=== PATIENT | female | born 1985 | race Caucasian/White ===

== ENCOUNTER 2016-07-16 11:28 | Outpatient (CLI) | payer OTHER ==
--- NOTE | 2016-07-16 12:00 | L&D Flow Sheet ---
LD Flowsheet Datetime Report Generated by CPN: 07/16/2016 12:00 Datetime: 07/16/2016 11:38 Vital Signs Stage of : Labor (Amalia Milton RN) NBP Sys/Skylar/Mean (mmHg): 117 (QS system process) : 71 (QS system process) : 89 (QS system process) Pulse: 100 (QS system process) Respirations: 16 (Amalia Milton RN) Temperature (F): 97.5 (Amalia Sarpy, RN) Temperature (C): 36.4 (QS system process) Temperature Route: Oral (Amalia Milton, RN) Communication LaborFlag: Labor (QS system process)
--- NOTE | 2016-07-16 12:32 | Non Stress Test Report ---
Non Stress Test Datetime Report Generated by CPN: 07/16/2016 12:31 DEMOGRAPHIC EGA NST: 38.2 INDICATION Indication for Study: Ordered by Provider; Other MONITORING Monitor Explained: Monitor Explained; Test Explained; Patient Verbalized Understanding Time on Monitor: 07/16/2016 11:37 NST INTERVENTIONS NST Interventions: PO Hydration; Reposition Patient Physician Notified NST: Antonina Marsh, CNM BABY A: [id number] BABY A Movement : Present Contraction Frequency : none FHR Baseline : 135 Accelerations : 15X15 Decelerations : None Variability : Moderate 6-25bpm NST Review: Meets Criteria for Reactive NST NST Review and Verified By : Cole Mccullough RNC NST Results: Reactive NST REPORT Report Trigger: Send Report
== END 2016-07-16 12:31 | disposition home or self-care (01) ==
LOC: LC 11:28
PROVIDERS: ATTEND Obstetrics & Gynecology
PROC: 4A1HXCZ Monitoring of Products of Conception, Cardiac Rate, External Approach (ICD-10-PCS; principal; 2016-07-16)
DX: Z34.83 Encounter for supervision of other normal pregnancy, third trimester (principal); Z36 Encounter for antenatal screening of mother; Z3A.38 38 weeks gestation of pregnancy
CPT/HCPCS: 59025

== ENCOUNTER 2016-07-27 10:52 | Inpatient (IN) | payer OTHER ==
[2016-07-27] MEDS ORDERED: OXYTOCIN/NORMAL SALINE 1,000 ML IV PRN ×2 (11:12→18:54)
[2016-07-27] MEDS ORDERED: RINGERS SOLUTION,LACTATED 300 ML IV ONE (11:12)
[2016-07-27 11:39] LABS: APPEARANCE,URINE SLIGHTLY-CLOUDY; BILIRUBIN,URINE NEGATIVE (NEGATIVE); GLUCOSE, URINE NEGATIVE (NEGATIVE); KETONES,URINE NEGATIVE (NEGATIVE); LEUKOCYTE ESTERASE,URINE MODERATE (NEGATIVE); NITRITE,URINE NEGATIVE (NEGATIVE); PROTEIN,URINE NEGATIVE (NEGATIVE); UROBILINOGEN,URINE NEGATIVE mg/dL (<2.0)
[2016-07-27] MEDS ORDERED: OXYTOCIN/NORMAL SALINE 20 UNIT/1,000 ML RTUINJ ONE (11:49)
[2016-07-27 11:56] LABS: URINE BARBITURATES SCREEN NEGATIVE; URINE METHADONE SCREEN NEGATIVE; URINE OPIATES LOW NEGATIVE; URINE PHENCYCLIDINE SCREEN NEGATIVE
[2016-07-27 11:57] LABS: ABSOLUTE EOSINOPHILS # (AUTO) 0.1 10^3/uL (0.0-0.6); ABSOLUTE LYMPHOCYTES (AUTO) 1.3 10^3/uL (0.5-4.7); ABSOLUTE MONOCYTES (AUTO) 0.7 10^3/uL (0.1-1.4); ABSOLUTE NEUT (AUTO) 7.3 10^3/uL (1.7-8.2); BASOPHILS % (AUTO) 0.1 % (0-2); EOSINOPHILS % (AUTO) 0.8 % (0-6); HEMATOCRIT 33.7 % (36.0-47.0); HEMOGLOBIN 11.6 g/dL (12.0-15.5); HGB HCT DIFFERENCE 1.1; LYMPHOCYTES % (AUTO) 14.2 % (13-45); MEAN CORPUSCULAR HEMOGLOBIN 28.5 pg (27.0-33.4); MEAN CORPUSCULAR HGB CONC 34.4 g/dL (32.0-36.0); MEAN CORPUSCULAR VOLUME 83 fl (80-97); MONOCYTES % (AUTO) 7.1 % (3-13); RED BLOOD COUNT 4.06 10^6/uL (3.72-5.28); RED CELL DISTRIBUTION WIDTH 14.4 % (11.5-14.0); SEGMENTED NEUTROPHILS % (AUTO) 77.8 % (42-78); WHITE BLOOD COUNT 9.4 10^3/uL (4.0-10.5)
[2016-07-27] MEDS: RINGERS SOLUTION,LACTATED 1,000 ML IV PRN ×2 (11:57→15:57)
--- NOTE | 2016-07-27 12:01 | L&D Flow Sheet ---
LD Flowsheet Datetime Report Generated by CPN: 07/27/2016 12:00 Datetime: 07/27/2016 11:54 Vital Signs NBP Sys/Skylar/Mean (mmHg): 123 (QS system process) : 80 (QS system process) : 96 (QS system process) Pulse: 96 (QS system process) Communication LaborFlag: Labor (QS system process) Datetime: 07/27/2016 11:23 Vital Signs NBP Sys/Skylar/Mean (mmHg): 126 (QS system process) : 69 (QS system process) : 91 (QS system process) Pulse: 99 (QS system process) Respirations: 16 (Lashawn Keller RN) Temperature (F): 98.0 (Lashawn Keller RN) Temperature (C): 36.7 (QS system process) Temperature Route: Oral (Lashawn Keller RN) Communication LaborFlag: Labor (QS system process) Datetime: 07/27/2016 11:08 Patient Care Patient Position/Activity: Left Lateral; Semi-Fowlers (Lashawn Marhefka, RN) Teaching Instructional Method: Verbal; Patient Instructed; Verbalized Understanding (Lashawn Keller RN) Plan of Care: Plan of Care Discussed (Lashawn Keller RN) Unit Routine: [place] to Room; [place]; Bed; Unit Personnel; Monitoring; Bathroom Privileges (Lashawn Keller RN) Labor/Induction: Labor Stages (Lashawn Keller RN) Datetime: 07/27/2016 11:04 Vaginal Exam Dilatation (cm): 3.5 (Lashawn Keller RN) Effacement (%): 80 (Lashawn Keller RN) Station: -1 (Lashawn Keller RN) Exam by: Jonathan Gillespie CNM (Lashawn Keller RN) Vaginal Exam Comments: bulging bag, baby belottable (Lashawn Keller RN)
--- NOTE | 2016-07-27 13:38 | L&D Progress Notes ---
PROGRESS NOTES Datetime Report Generated by CPN: 07/27/2016 13:38 PROGRESS NOTE Impression: Normal Progression of Labor; Reassuring Heart Rate Procedures: Artificial ROM; Scalp Electrode; Sterile Vag Exam Plan: Continue Present Management Vital Signs : Reviewed; Within Normal Limits Comment: Pt coping with ctx feels more pressure AROM with FSE Copious clear fluid Pt may have epidural, prn Pitocin 10 mu per protocol. VAGINAL EXAM Dilatation: 5 Dilatation: 4 Effacement: 80 Effacement: 80 Station: -1 Station: -2 Contractions: 2-5 Contractions: irregular MEMBRANES Membranes: Ruptured Membranes: Intact Amniotic Fluid Color: Clear Amniotic Fluid Color: Clear FETUS A FHR - Baseline: 145 Monitoring: External US Variability: Moderate 6-25bpm Decelerations: None FHR Category: Category I : 39.6 Estimated Weight (gm): 3500 Presentation: Vertex SIGNATURE SIGNATURE: [id number] SIGNATURE: [id number] SIGNATURE: [id number] Assignment: Telma Hawkins MD Signature: with User ID: [email or web address] : with User ID: [email or web address]
--- NOTE | 2016-07-27 14:01 | L&D Flow Sheet ---
LD Flowsheet Datetime Report Generated by CPN: 07/27/2016 14:00 Datetime: 07/27/2016 13:54 NBP Sys/Skylar/Mean (mmHg): 139 (QS system process) : 69 (QS system process) : 95 (QS system process) Pulse: 97 (QS system process) LaborFlag: Labor (QS system process) Datetime: 07/27/2016 13:45 Monitor Mode: External (Lashawn Arianna, RN) Frequency (min): 2-4 (Lashawn Marhefka, RN) Quality: Mild (Lashawn Marhefka, RN) Duration (sec): 40-70 (Lashawn Marhefka, RN) Resting Tone (Palpate): Relaxed (Lashawn Marhefka, RN) Monitor Mode: External US (Lashawn Marhefka, RN) FHR Baseline Rate : 145 (Lashawn Marhefka, RN) FHR Baseline Changes: No Baseline Change (Lashawn Marhefka, RN) Variability: Moderate 6-25 bpm (Lashawn Marhefka, RN) Accelerations: None (Lashawn Marhefka, RN) Decelerations: Early (Lashawn Marhefka, RN) Datetime: 07/27/2016 13:30 Monitor Mode: External (Lashawn Marhefka, RN) Frequency (min): 2-4 (Lashawn Marhefka, RN) Quality: Mild (Lashawn Marhefka, RN) Duration (sec): 50-60 (Lashawn Marhefka, RN) Resting Tone (Palpate): Relaxed (Lashawn Marhefka, RN) Monitor Mode: External US (Lashawn Marhefka, RN) FHR Baseline Rate : 140 (Lashawn Marhefka, RN) FHR Baseline Changes: No Baseline Change (Lashawn Marhefka, RN) Variability: Moderate 6-25 bpm (Lashawn Marhefka, RN) Accelerations: None (Lashawn Marhefka, RN) Decelerations: None (Lashawn Marhefka, RN) Pitocin (milliunit): Pitocin Increased to (milliunits) @ (Annotations: 10) (Lashawn Marhefka, RN) Datetime: 07/27/2016 13:26 Dilatation (cm): 4.0 (Lashawn Keller RN) Effacement (%): 80 (Lashawn Keller RN) Station: -2 (Lashawn Keller RN) Exam by: Jonathan Gillespie CNM (Lashawn Keller RN) Membrane Status: Ruptured (Lashawn Keller RN) Membranes Rupture Method: Artificial (Lashawn Keller, RN) Amniotic Fluid Color: Clear (Lashawn Keller, RN) Amniotic Fluid Amount: Copious (Lashawn Keller, RN) Amniotic Fluid Odor: Normal (Lashawn Keller, RN) Vaginal Bleeding: None (Lashawn Keller RN) Cervix, Consistency: Soft (Lashawn Keller RN) Cervix, Position: Midposition (Lashawn Keller RN) Datetime: 07/27/2016 13:23 NBP Sys/Skylar/Mean (mmHg): 141 (QS system process) : 87 (QS system process) : 107 (QS system process) Pulse: 109 (QS system process) LaborFlag: Labor (QS system process) Datetime: 07/27/2016 13:15 Monitor Mode: External (Lashawn Marhefka, RN) Frequency (min): 2-6 (Lashawn Marhefka, RN) Quality: Mild (Lashawn Marhefka, RN) Duration (sec): 40-100 (Lashawn Marhefka, RN) Resting Tone (Palpate): Relaxed (Lashawn Marhefka, RN) Monitor Mode: External US (Lashawn Marhefka, RN) FHR Baseline Rate : 140 (Lashawn Marhefka, RN) FHR Baseline Changes: No Baseline Change (Lashawn Marhefka, RN) Variability: Minimal - Undetectable to <=5 bpm (Lashawn Marhefka, RN) Accelerations: 15X15 (Lashawn Marhefka, RN) Decelerations: None (Lashawn Marhefka, RN) Pitocin (milliunit): Pitocin Remains (milliunits) @ (Annotations: 8) (Lashawn Marhefka, RN) Datetime: 07/27/2016 13:03 Patient Position/Activity: Birthing Ball (Lashawn Keller, RN) Datetime: 07/27/2016 13:00 Monitor Mode: External; Palpation (Lashawn Keller, RN) Monitor Interventions for UA: [place] Adjusted (Lashawn Keller, RN) Frequency (min): 2-4 (Lashawn Keller, RN) Quality: Mild (Lashawn Keller, RN) Duration (sec): 50-100 (Lashawn Rameyfka, RN) Resting Tone (Palpate): Relaxed (Lashawn Keller, RN) Monitor Mode: External US (Lashawn Keller, RN) FHR Baseline Rate : 135 (Lashawn Rameyfka, RN) FHR Baseline Changes: No Baseline Change (Lashawn Rameyfka, RN) Variability: Moderate 6-25 bpm (Lashawn Rameyfka, RN) Accelerations: 15X15 (Lashawn Rameyfka, RN) Decelerations: None (Lashawn Keller, RN) Pitocin (milliunit): Pitocin Increased to (milliunits) @ (Annotations: 8) (Lashawn Marpiafka, RN) Datetime: 07/27/2016 12:58 NBP Sys/Skylar/Mean (mmHg): 144 (QS system process) : 65 (QS system process) : 94 (QS system process) Pulse: 116 (QS system process) Respirations: 16 (Lashawn Karolinefka, RN) LaborFlag: Labor (QS system process) Datetime: 07/27/2016 12:56 Patient Care Comments: Pt standing @ bedside. (Lashawn Karolinefka, RN) Datetime: 07/27/2016 12:53 I/O Interventions: Up to BR (Lashawn Marhefka, RN) Datetime: 07/27/2016 12:45 Monitor Mode: External (Lashawn Marhefka, RN) Frequency (min): 6-7 (Lashawn Marhefka, RN) Quality: Mild (Lashawn Marhefka, RN) Duration (sec): 50-70 (Lashawn Marhefka, RN) Resting Tone (Palpate): Relaxed (Lashawn Marhefka, RN) Monitor Mode: External US (Lashawn Marhefka, RN) FHR Baseline Rate : 135 (Lashawn Marhefka, RN) FHR Baseline Changes: No Baseline Change (Lashawn Marhefka, RN) Variability: Moderate 6-25 bpm (Lashawn Marhefka, RN) Decelerations: None (Lashawn Marhefka, RN) Pitocin (milliunit): Pitocin Increased to (milliunits) @ (Annotations: 6) (Lashawn Marhefka, RN) Datetime: 07/27/2016 12:36 Comments: RN @ bedside ultrasound adjusted. (Lashawn Marhefka, RN) Patient Position/Activity: Birthing Ball (Lashawn Marhefka, RN) Datetime: 07/27/2016 12:30 Monitor Mode: External (Lashawn Marhefka, RN) Frequency (min): 2-3 (Lashawn Marhefka, RN) Quality: Mild (Lashawn Marhefka, RN) Duration (sec): 40-80 (Lashawn Marhefka, RN) Resting Tone (Palpate): Relaxed (Lashawn Marhefka, RN) Monitor Mode: External US (Lashawn Marhefka, RN) FHR Baseline Rate : 140 (Lashawn Marhefka, RN) FHR Baseline Changes: No Baseline Change (Lashawn Marhefka, RN) Variability: Minimal - Undetectable to <=5 bpm (Lashawn Marhefka, RN) Accelerations: None (Lashawn Marhefka, RN) Decelerations: None (Lashawn Marhefka, RN) Pitocin (milliunit): Pitocin Increased to (milliunits) @ (Annotations: 4) (Lashawn Marhefka, RN) Datetime: 07/27/2016 12:15 Monitor Mode: External (Lashawn Marhefka, RN) Frequency (min): 7 (Lashawn Marhefka, RN) Quality: Mild (Lashawn Marhefka, RN) Duration (sec): 50-60 (Lashawn Marhefka, RN) Resting Tone (Palpate): Relaxed (Lashawn Marhefka, RN) Monitor Mode: External US (Lashawn Marhefka, RN) FHR Baseline Rate : 140 (Lashawn Marhefka, RN) FHR Baseline Changes: No Baseline Change (Lashawn Marhefka, RN) Variability: Moderate 6-25 bpm (Lashawn Marhefka, RN) Accelerations: 15X15 (Lashawn Marhefka, RN) Decelerations: None (Lashawn Marhefka, RN) Datetime: 07/27/2016 12:04 Pitocin (milliunit): Pitocin Started (milliunits) @ 2 (Lashawn Marhefka, RN) Datetime: 07/27/2016 12:00 Monitor Mode: External; Palpation (Lashawn Marhefka, RN) Frequency (min): Irregular (Lashawn Marhefka, RN) Quality: Mild (Lashawn Marhefka, RN) Duration (sec): 50-90 (Lashawn Marhefka, RN) Resting Tone (Palpate): Relaxed (Lashawn Keller RN) Monitor Mode: External US (Lashawn Keller RN) FHR Baseline Rate : 135 (Lashawn Keller RN) FHR Baseline Changes: No Baseline Change (aLshawn Keller RN) Variability: Moderate 6-25 bpm (Lashawn Keller RN) Accelerations: 15X15 (Lashawn Keller RN) Decelerations: None (Lashawn Keller RN)
--- NOTE | 2016-07-27 15:57 | L&D Progress Notes ---
PROGRESS NOTES Datetime Report Generated by CPN: 07/27/2016 15:56 PROGRESS NOTE Impression: Normal Progression of Labor Procedures: Sterile Vag Exam Plan: Continue Present Management Vital Signs : Reviewed; Within Normal Limits Comment: pt requesting pain medication Pt may have epidural VAGINAL EXAM Dilatation: 5 Effacement: 80 Station: 0 Contractions: 2-4 MEMBRANES Membranes: Ruptured FETUS A FHR - Baseline: 135 Monitoring: Internal Scalp Electrode Variability: Moderate 6-25bpm Accelerations: 15X15 Decelerations: None FHR Category: Category I FETUS C SIGNATURE: [id number] Assignment: Telma Hawkins MD Signature: with User ID: [email or web address] : with User ID: [email or web address]
--- NOTE | 2016-07-27 16:01 | L&D Flow Sheet ---
LD Flowsheet Datetime Report Generated by CPN: 07/27/2016 16:00 Datetime: 07/27/2016 15:59 Monitor Interventions for UA: [place] Adjusted (Lashawn Marhefka, RN) Datetime: 07/27/2016 15:58 IV/Blood Work: IV Bolus Started; New IV Bag Hung (Lashawn Marhefka, RN) Datetime: 07/27/2016 15:57 Pain Scale: 4 (Lashawn Keller RN) Pain Presence: Intermittent (Lashawn Keller RN) Pain Type: Contraction (Lashawn Keller RN) Pain Location: Abdomen (Lashawn Keller RN) Pain Goal: 0 (Lashawn Keller RN) Pain Relief Measures: Comfort Measures (Lashawn Keller RN) Pain Coping: Breathing Through Contractions; Requesting Pain Medication or Epidural (Lashawn Keller RN) Comfort Measures: Breathing/Relaxation (Lashawn Keller RN) LaborFlag: Labor (QS system process) Datetime: 07/27/2016 15:52 Dilatation (cm): 5.0 (Lashawn Keller RN) Effacement (%): 80 (Lashawn Keller RN) Station: 0 (Lashawn Keller RN) Exam by: Jonathan Gillespie CNM (Lashawn Keller RN) Datetime: 07/27/2016 15:45 Monitor Mode: External (Lashawn Marhefka, RN) Frequency (min): 1-3 (Lashawn Marhefka, RN) Quality: Mild (Lashawn Marhefka, RN) Duration (sec): 40-60 (Lashawn Marhefka, RN) Resting Tone (Palpate): Relaxed (Lashawn Marhefka, RN) Datetime: 07/27/2016 15:30 Monitor Mode: External (Lashawn Marhefka, RN) Frequency (min): 1-3 (Lashawn Marhefka, RN) Quality: Mild (Lashawn Marhefka, RN) Duration (sec): 40-90 (Lashawn Marhefka, RN) Resting Tone (Palpate): Relaxed (Lashawn Marhefka, RN) Datetime: 07/27/2016 15:24 NBP Sys/Skylar/Mean (mmHg): 126 (QS system process) : 88 (QS system process) : 104 (QS system process) Pulse: 101 (QS system process) LaborFlag: Labor (QS system process) Datetime: 07/27/2016 15:15 Monitor Mode: External (Lashawn Marhefka, RN) Frequency (min): 1-3 (Lashawn Marhefka, RN) Quality: Mild (Lashawn Marhefka, RN) Duration (sec): 50-90 (Lashawn Marhefka, RN) Resting Tone (Palpate): Relaxed (Lashawn Marhefka, RN) Datetime: 07/27/2016 15:00 Monitor Mode: External (Lashawn Marhefka, RN) Frequency (min): 1-3 (Lashawn Marhefka, RN) Quality: Mild (Lashawn Marhefka, RN) Duration (sec): 50-70 (Lashawn Marhefka, RN) Resting Tone (Palpate): Relaxed (Lashawn Marhefka, RN) Monitor Mode: Internal Scalp Electrode (Lashawn Marhefka, RN) FHR Baseline Rate : 140 (Lashawn Marhefka, RN) FHR Baseline Changes: No Baseline Change (Lashawn Marhefka, RN) Variability: Moderate 6-25 bpm (Lashawn Marhefka, RN) Accelerations: 15X15 (Lashawn Marhefka, RN) Decelerations: Early (Lashawn Marhefka, RN) Pitocin (milliunit): Pitocin Increased to (milliunits) @ (Annotations: 16) (Lashawn Marhefka, RN) Datetime: 07/27/2016 14:53 NBP Sys/Skylar/Mean (mmHg): 125 (QS system process) : 69 (QS system process) : 93 (QS system process) Pulse: 96 (QS system process) Respirations: 16 (Lashawn Marhefka, RN) Temperature (F): 97.7 (Lashawn Marhefka, RN) Temperature (C): 36.5 (QS system process) Temperature Route: Oral (Lashawn Marhefka, RN) LaborFlag: Labor (QS system process) Datetime: 07/27/2016 14:47 Pain Scale: 3 (Lashawn Keller RN) Pain Presence: Intermittent (Lashawn Keller RN) Pain Type: Contraction (Lashawn Keller RN) Pain Location: Abdomen (Lashawn Keller RN) Pain Goal: 0 (Lashawn Keller RN) Pain Relief Measures: Comfort Measures (Lashawn Keller RN) Pain Coping: Breathing Through Contractions (Lashawn Keller RN) Comfort Measures: Breathing/Relaxation; Rocking Chair (Lashawn Keller RN) LaborFlag: Labor (QS system process) Datetime: 07/27/2016 14:45 Monitor Mode: External; Palpation (Lashawn Keller RN) Quality: Mild (Lashawn Keller RN) Resting Tone (Palpate): Relaxed (Lashawn Keller RN) Contraction Comments: UTD toco adjusted (Lashawn Keller, RN) Monitor Mode: Internal Scalp Electrode (Lashawn Keller, RN) FHR Baseline Rate : 140 (Lashawn Keller RN) FHR Baseline Changes: No Baseline Change (Lashawn Keller RN) Variability: Moderate 6-25 bpm (Lashawn Keller, RN) Accelerations: 15X15 (Lashawn Keller, RN) Decelerations: None (Lashawn Keller RN) Pitocin (milliunit): Pitocin Increased to (milliunits) @ (Annotations: 14) (Lashawn Marhefka, RN) Datetime: 07/27/2016 14:30 Monitor Mode: External (Lashawn Marhefka, RN) Frequency (min): 1-3 (Lashawn Marhefka, RN) Quality: Mild (Lashawn Marhefka, RN) Duration (sec): 40-60 (Lashawn Marhefka, RN) Resting Tone (Palpate): Relaxed (Lashawn Marhefka, RN) Monitor Mode: Internal Scalp Electrode (Lashawn Marhefka, RN) FHR Baseline Rate : 135 (Lashawn Marhefka, RN) FHR Baseline Changes: No Baseline Change (Lashawn Marhefka, RN) Variability: Moderate 6-25 bpm (Lashawn Marhefka, RN) Accelerations: 15X15 (Lashawn Marhefka, RN) Decelerations: None (Lashawn Marhefka, RN) Pitocin (milliunit): Pitocin Remains (milliunits) @ (Annotations: 12) (Lashawn Marhefka, RN) Datetime: 07/27/2016 14:23 NBP Sys/Skylar/Mean (mmHg): 122 (QS system process) : 74 (QS system process) : 93 (QS system process) Pulse: 96 (QS system process) LaborFlag: Labor (QS system process) Datetime: 07/27/2016 14:15 Monitor Mode: External; Palpation (Lashawn Keller, RN) Frequency (min): 2-4 (Lashawn Arianna, RN) Quality: Mild (Lashawn Marhefka, RN) Duration (sec): 60-70 (Lashawn Marhefka, RN) Resting Tone (Palpate): Relaxed (Lashawn Marhefka, RN) Monitor Mode: Internal Scalp Electrode (Lashawn Karolinefka, RN) FHR Baseline Rate : 140 (Lashawn Marhefka, RN) FHR Baseline Changes: No Baseline Change (Lashawn Marhefka, RN) Variability: Moderate 6-25 bpm (Lashawn Marhefka, RN) Accelerations: 15X15 (Lashawn Marhefka, RN) Decelerations: None (Lashawn Marhefka, RN) Pitocin (milliunit): Pitocin Increased to (milliunits) @ (Annotations: 12) (Lashawn Marhefka, RN) Datetime: 07/27/2016 14:09 Monitor Interventions for UA: [place] Adjusted (Lashwan Umanaka, RN) Contraction Comments: RN @ bedside adjusting toco (Lashawn Karolinefka, RN) Datetime: 07/27/2016 14:00 Monitor Mode: External (Lashawn Keller, RN) Frequency (min): 2-3 (Lashawn Keller, RN) Quality: Mild (Lashawn Keller, RN) Duration (sec): 40-60 (Lashawn Keller, RN) Resting Tone (Palpate): Relaxed (Lashawn Keller, RN) Monitor Mode: Internal Scalp Electrode (Lashawn Keller RN) FHR Baseline Rate : 145 (Lashawn Keller RN) FHR Baseline Changes: No Baseline Change (Lashawn Keller RN) Variability: Moderate 6-25 bpm (Lashawn Umanaka, RN) Accelerations: None (Lashawn Keller, RN) Decelerations: None (Lashawn Keller RN) Pitocin (milliunit): Pitocin Remains (milliunits) @ (Annotations: 10) (Lashawn Keller RN)
[2016-07-27] MEDS ORDERED: BUPIVACAINE HCL 0.25 % INJ/PF (2.5 MG/1 ML) 30 ML VIAL ONE (16:18)
[2016-07-27] MEDS ORDERED: EPHEDRINE SULFATE INJ 50 MG/1 ML AMPULE ONE (16:18)
[2016-07-27] MEDS ORDERED: FENTANYL/BUPIVACAINE/NS/PF 200 MCG/100 ML RTUINJ EPI ONE (16:18)
[2016-07-27] MEDS ORDERED: BUPIVACAINE HCL 0.25 % INJ/PF (2.5 MG/1 ML) 30 ML VIAL INFIL ONE (16:29)
[2016-07-27] MEDS ORDERED: FENTANYL/BUPIVACAINE/NS/PF 100 ML EPI PRN (16:29)
[2016-07-27] MEDS ORDERED: BENZOIN/ALOE VERA/STORAX/TOLU TINCTURE 60 ML TP PRN (16:29)
--- NOTE | 2016-07-27 18:01 | L&D Flow Sheet ---
LD Flowsheet Datetime Report Generated by CPN: 07/27/2016 18:00 Datetime: 07/27/2016 17:59 NBP Sys/Skylar/Mean (mmHg): 121 (QS system process) : 73 (QS system process) : 91 (QS system process) Pulse: 103 (QS system process) LaborFlag: Labor (QS system process) Datetime: 07/27/2016 17:56 NBP Sys/Skylar/Mean (mmHg): 124 (QS system process) : 74 (QS system process) : 93 (QS system process) Pulse: 97 (QS system process) LaborFlag: Labor (QS system process) Datetime: 07/27/2016 17:53 NBP Sys/Skylar/Mean (mmHg): 124 (QS system process) : 81 (QS system process) : 98 (QS system process) Pulse: 93 (QS system process) LaborFlag: Labor (QS system process) Datetime: 07/27/2016 17:50 NBP Sys/Skylar/Mean (mmHg): 124 (QS system process) : 76 (QS system process) : 95 (QS system process) Pulse: 93 (QS system process) LaborFlag: Labor (QS system process) Datetime: 07/27/2016 17:47 NBP Sys/Skylar/Mean (mmHg): 123 (QS system process) : 76 (QS system process) : 93 (QS system process) Pulse: 102 (QS system process) LaborFlag: Labor (QS system process) Datetime: 07/27/2016 17:45 Monitor Mode: External (Lashawn Marhefka, RN) Frequency (min): 2-3 (Lashawn Marhefka, RN) Quality: Mild/Moderate (Lashawn Marhefka, RN) Duration (sec): 40-60 (Lashawn Marhefka, RN) Resting Tone (Palpate): Relaxed (Lashawn Marhefka, RN) Monitor Mode: Internal Scalp Electrode (Lashawn Marhefka, RN) FHR Baseline Rate : 140 (Lashawn Marhefka, RN) FHR Baseline Changes: No Baseline Change (Lashawn Marhefka, RN) Variability: Minimal - Undetectable to <=5 bpm (Lashawn Marhefka, RN) Accelerations: 15X15 (Lashawn Marhefka, RN) Decelerations: Late (Lashawn Marhefka, RN) Pitocin (milliunit): Pitocin Remains (milliunits) @ (Annotations: 20) (Lashawn Marhefka, RN) Datetime: 07/27/2016 17:44 NBP Sys/Skylar/Mean (mmHg): 120 (QS system process) : 76 (QS system process) : 93 (QS system process) Pulse: 106 (QS system process) LaborFlag: Labor (QS system process) Datetime: 07/27/2016 17:42 Oxygen Method: Non-Rebreather (Lashawn Keller RN) Datetime: 07/27/2016 17:41 NBP Sys/Skylar/Mean (mmHg): 119 (QS system process) : 70 (QS system process) : 90 (QS system process) Pulse: 100 (QS system process) Medication Comments: 5 mg ephedrine given IV (Lashawn Keller RN) LaborFlag: Labor (QS system process) Datetime: 07/27/2016 17:38 NBP Sys/Skylar/Mean (mmHg): 119 (QS system process) : 67 (QS system process) : 86 (QS system process) Pulse: 96 (QS system process) LaborFlag: Labor (QS system process) Datetime: 07/27/2016 17:35 NBP Sys/Skylar/Mean (mmHg): 118 (QS system process) : 63 (QS system process) : 84 (QS system process) Pulse: 96 (QS system process) Monitor Interventions for UA: [place] Adjusted (Lashawn Keller RN) IV/Blood Work: IV Bolus Started (Lashawn Keller RN) LaborFlag: Labor (QS system process) Datetime: 07/27/2016 17:34 Medication Comments: 5 mg ephedrine given IV (Lashawn Marpiafka, RN) Datetime: 07/27/2016 17:31 Patient Position/Activity: Left Lateral; Peanut Ball (Lashawn Marpiafka, RN) Datetime: 07/27/2016 17:30 NBP Sys/Skylar/Mean (mmHg): 118 (QS system process) : 77 (QS system process) : 92 (QS system process) Pulse: 107 (QS system process) Monitor Mode: External (Lashawn Keller RN) Frequency (min): 1.5-3 (Lashawn Keller RN) Quality: Mild/Moderate (Lashawn Keller RN) Duration (sec): 60-90 (Lashawn Marhefka, RN) Resting Tone (Palpate): Relaxed (Lashawn Keller, RN) Monitor Mode: Internal Scalp Electrode (Lashawn Keller, RN) FHR Baseline Rate : 135 (Lashawn Rameyfka, RN) FHR Baseline Changes: No Baseline Change (Lashawn Karolinefka, RN) Variability: Moderate 6-25 bpm (Lashawn Marpiafka, RN) Accelerations: None (Lashawn Karolinefka, RN) Decelerations: Late (Lashawn Rameyfjacob, RN) Pitocin (milliunit): Pitocin Remains (milliunits) @ (Annotations: 20) (Lashawn Keller, RN) LaborFlag: Labor (QS system process) Datetime: 07/27/2016 17:22 Patient Position/Activity: Right Lateral; Peanut Ball (Lashawn Keller, RN) Datetime: 07/27/2016 17:15 Monitor Mode: External; Palpation (Lashawn Keller, RN) Frequency (min): 2-3 (Lashawn Keller, RN) Quality: Mild/Moderate (Lashawn Marhefka, RN) Duration (sec): 50-70 (Lashawn Marhefka, RN) Resting Tone (Palpate): Relaxed (Lashawn Marhefka, RN) Monitor Mode: Internal Scalp Electrode (Lashawn Marhefka, RN) FHR Baseline Rate : 130 (Lashawn Marhefka, RN) FHR Baseline Changes: No Baseline Change (Lashawn Marhefka, RN) Variability: Moderate 6-25 bpm (Lashawn Marhefka, RN) Accelerations: 15X15 (Lashawn Marhefka, RN) Decelerations: Late (Lashawn Marhefka, RN) Pitocin (milliunit): Pitocin Remains (milliunits) @ (Annotations: 20) (Lashawn Marhefka, RN) Datetime: 07/27/2016 17:12 NBP Sys/Skylar/Mean (mmHg): 105 (QS system process) : 57 (QS system process) : 78 (QS system process) Pulse: 98 (QS system process) I/O Interventions: Conteh Cath Inserted (Lashawn Marpiafka, RN) LaborFlag: Labor (QS system process) Datetime: 07/27/2016 17:10 Dilatation (cm): 4.0 (Lashawn Keller, RN) Effacement (%): 80 (Lashawn Arianna, RN) Station: 0 (Lashawn Keller, RN) Exam by: RChrist Keller, RN (Lashawn Keller, RN) Datetime: 07/27/2016 17:08 Pitocin (milliunit): Pitocin Increased to (milliunits) @ 20 (Lashawn Keller, RN) Datetime: 07/27/2016 17:07 NBP Sys/Skylar/Mean (mmHg): 111 (QS system process) : 59 (QS system process) : 80 (QS system process) Pulse: 102 (QS system process) LaborFlag: Labor (QS system process) Datetime: 07/27/2016 17:06 NBP Sys/Skylar/Mean (mmHg): 112 (QS system process) : 54 (QS system process) : 78 (QS system process) Pulse: 102 (QS system process) LaborFlag: Labor (QS system process) Datetime: 07/27/2016 17:05 NBP Sys/Skylar/Mean (mmHg): 113 (QS system process) : 64 (QS system process) : 84 (QS system process) Pulse: 120 (QS system process) LaborFlag: Labor (QS system process) Datetime: 07/27/2016 17:04 NBP Sys/Skylar/Mean (mmHg): 121 (QS system process) : 66 (QS system process) : 88 (QS system process) Pulse: 99 (QS system process) LaborFlag: Labor (QS system process) Datetime: 07/27/2016 17:03 NBP Sys/Skylar/Mean (mmHg): 117 (QS system process) : 68 (QS system process) : 86 (QS system process) Pulse: 99 (QS system process) LaborFlag: Labor (QS system process) Datetime: 07/27/2016 17:02 NBP Sys/Skylar/Mean (mmHg): 118 (QS system process) : 68 (QS system process) : 88 (QS system process) Pulse: 102 (QS system process) Pulse: 99 (QS system process) SpO2 (%): 96 (QS system process) LaborFlag: Labor (QS system process) Datetime: 07/27/2016 17:01 Epidural Procedure: Cath Placed (Lashawn Marhefka, RN) Datetime: 07/27/2016 17:00 NBP Sys/Skylar/Mean (mmHg): 122 (QS system process) : 70 (QS system process) : 91 (QS system process) Pulse: 106 (QS system process) Monitor Mode: External (Lashawn Keller, RN) Frequency (min): UTD (Lashawn Keller, RN) Quality: Mild/Moderate (Lashawn Marhefka, RN) Resting Tone (Palpate): Relaxed (Lashawn Marhefka, RN) Contraction Comments: Pt sitting for epidural (Lashawn Lyndsayka, RN) Monitor Mode: Internal Scalp Electrode (Lashawn Rameyfka, RN) FHR Baseline Rate : 135 (Lashawn Marhefka, RN) FHR Baseline Changes: No Baseline Change (Lashawn Marhefka, RN) Variability: Moderate 6-25 bpm (Lashawn Marhefka, RN) Accelerations: 15X15 (Lashawn Marhefka, RN) Decelerations: None (Lashawn Marhefka, RN) Epidural Procedure: Test Dose (Lashawn Marhefka, RN) LaborFlag: Labor (QS system process) Datetime: 07/27/2016 16:57 Pulse: 109 (QS system process) SpO2 (%): 98 (QS system process) LaborFlag: Labor (QS system process) Datetime: 07/27/2016 16:54 Procedure Verify: Correct Patient Identity; Correct Side and Site are Marked; Accurate Procedure Consent Form; Agreement on Procedure to be Done; Correct Patient Position; Relevant Images and Results are Properly Labeled and Displayed; Addressed Need to Administer Antibiotics or Fluids for Irrigation; Safety Precautions Based on Patient History or Medication Use (Lashawn Keller RN) Datetime: 07/27/2016 16:53 NBP Sys/Skylar/Mean (mmHg): 126 (QS system process) : 70 (QS system process) : 93 (QS system process) Pulse: 101 (QS system process) LaborFlag: Labor (QS system process) Datetime: 07/27/2016 16:52 Pulse: 94 (QS system process) SpO2 (%): 97 (QS system process) LaborFlag: Labor (QS system process) Datetime: 07/27/2016 16:50 Procedure Verify: Correct Patient Identity; Correct Side and Site are Marked; Accurate Procedure Consent Form; Agreement on Procedure to be Done; Correct Patient Position; Relevant Images and Results are Properly Labeled and Displayed; Addressed Need to Administer Antibiotics or Fluids for Irrigation; Safety Precautions Based on Patient History or Medication Use (Lashawn Keller RN) Epidural Positioning: Sitting (Lashawn Keller RN) Anesthesia Comments: Dr. Tadeo @ bedside. (Lashawn Keller RN) Datetime: 07/27/2016 16:45 Monitor Mode: External (Lashawn Marhefka, RN) Frequency (min): 1.5-3 (Lashawn Marhefka, RN) Quality: Mild/Moderate (Lashawn Marhefka, RN) Duration (sec): 40-50 (Lashawn Marhefka, RN) Resting Tone (Palpate): Relaxed (Lashawn Marhefka, RN) Monitor Mode: Internal Scalp Electrode (Lashawn Marhefka, RN) FHR Baseline Rate : 130 (Lashawn Marhefka, RN) FHR Baseline Changes: No Baseline Change (Lashawn Marhefka, RN) Variability: Moderate 6-25 bpm (Lashawn Marhefka, RN) Accelerations: 15X15 (Lashawn Marhefka, RN) Decelerations: None (Lashawn Marhefka, RN) Pitocin (milliunit): Pitocin Remains (milliunits) @ (Annotations: 18) (Lashawn Marhefka, RN) Datetime: 07/27/2016 16:41 Anesthesia Comments: Dr. Tadeo called and notified of patient's request for epidural. (Lashawn Marhefka, RN) Datetime: 07/27/2016 16:30 Monitor Mode: External (Lashawn Marhefka, RN) Frequency (min): 2-3 (Lashawn Marhefka, RN) Quality: Mild/Moderate (Lashawn Marhefka, RN) Duration (sec): 50-60 (Lashawn Marhefka, RN) Resting Tone (Palpate): Relaxed (Lashawn Marhefka, RN) Monitor Mode: Internal Scalp Electrode (Lashawn Marhefka, RN) FHR Baseline Rate : 135 (Lashawn Marhefka, RN) FHR Baseline Changes: No Baseline Change (Lashawn Marhefka, RN) Variability: Moderate 6-25 bpm (Lashawn Marhefka, RN) Accelerations: 15X15 (Lashawn Marhefka, RN) Decelerations: None (Lashawn Marhefka, RN) Pitocin (milliunit): Pitocin Remains (milliunits) @ (Annotations: 18) (Lashwan Marhefka, RN) Datetime: 07/27/2016 16:23 NBP Sys/Skylar/Mean (mmHg): 133 (QS system process) : 59 (QS system process) : 85 (QS system process) Pulse: 101 (QS system process) Respirations: 16 (Lashawn Keller RN) LaborFlag: Labor (QS system process) Datetime: 07/27/2016 16:15 Monitor Mode: External (Lashawn Keller RN) Frequency (min): 1-3 (Lashawn Keller RN) Quality: Mild/Moderate (Lashawn Keller RN) Duration (sec): 50-80 (Lashawn Keller RN) Resting Tone (Palpate): Relaxed (Lashawn Keller RN) Monitor Mode: External US (Lashawn Keller RN) FHR Baseline Rate : 140 (Lashawn Keller RN) FHR Baseline Changes: No Baseline Change (Lasahwn Keller RN) Variability: Moderate 6-25 bpm (Lashawn Keller RN) Accelerations: 15X15 (Lashawn Keller RN) Decelerations: None (Lashawn Keller RN) Pitocin (milliunit): Pitocin Remains (milliunits) @ (Annotations: 18) (Lashawn Keller RN) Procedure Verify: Correct Patient Identity; Correct Side and Site are Marked; Accurate Procedure Consent Form; Agreement on Procedure to be Done (Lashawn Keller RN) Datetime: 07/27/2016 16:08 Patient Position/Activity: Right Lateral; Semi-Fowlers (Lashawn Keller, RN) Datetime: 07/27/2016 16:00 Monitor Mode: External; Palpation (Lashawn Keller RN) Frequency (min): 1-2 (Lashawn Keller RN) Quality: Mild/Moderate (Lashawn Keller RN) Duration (sec): 40-60 (Lashawn Keller RN) Resting Tone (Palpate): Relaxed (Lashawn Keller RN) Monitor Mode: Internal Scalp Electrode (Lashawn Keller RN) FHR Baseline Rate : 135 (Lashawn Keller RN) FHR Baseline Changes: No Baseline Change (Lashawn Keller RN) Variability: Moderate 6-25 bpm (Lashawn Keller RN) Accelerations: 15X15 (Lashawn Keller RN) Decelerations: None (Lashawn Keller RN) Pitocin (milliunit): Pitocin Increased to (milliunits) @ (Annotations: 18) (Lashawn Keller RN)
[2016-07-27] MEDS ORDERED: LIDOCAINE 1% INJ-PF (10 MG/ML) 30 ML SDV ONE (18:19)
[2016-07-27] MEDS ORDERED: MISOPROSTOL 0.2 MG TABLET ONE (18:19)
[2016-07-27] MEDS ORDERED: BENZOCAINE/MENTHOL AEROSOL SPRAY 56 ML TOP PRN (18:54)
[2016-07-27] MEDS ORDERED: ACETAMINOPHEN WITH CODEINE #3 TABLET PO PRN ×2 (18:54)
[2016-07-27] MEDS ORDERED: DIPH/PERTUSS(ACELL)/TETANUS VAC/PF 0.5 ML SYR (>=10YO) IM PRN (18:54)
[2016-07-27] MEDS ORDERED: MEASLES,MUMPS&RUBELLA VACC/PF 0.5 ML VIAL SUBCUT PRN (18:54)
[2016-07-27] MEDS ORDERED: DIBUCAINE 1% OINTMENT 28 GM TP PRN (18:54)
[2016-07-27] MEDS ORDERED: ZOLPIDEM TARTRATE 5 MG TABLET PO PRN (18:54)
--- NOTE | 2016-07-27 20:01 | L&D Flow Sheet ---
LD Flowsheet Datetime Report Generated by CPN: 07/27/2016 20:00 Datetime: 07/27/2016 19:47 NBP Sys/Skylar/Mean (mmHg): 117 (QS system process) : 64 (QS system process) : 85 (QS system process) Pulse: 104 (QS system process) Datetime: 07/27/2016 19:45 Pain Scale: 0 (Kathy Juno, RN) Pain Presence: None/Denies (Kathy Juno, RN) Pain Type: N/A (Kathy Juno, RN) Datetime: 07/27/2016 19:32 NBP Sys/Skylar/Mean (mmHg): 115 (QS system process) : 63 (QS system process) : 81 (QS system process) Pulse: 100 (QS system process) Datetime: 07/27/2016 19:30 Pain Scale: 0 (Kathy Juon, RN) Pain Presence: None/Denies (Kathy Juno, RN) Pain Type: N/A (Kathy Juno, RN) Datetime: 07/27/2016 19:17 NBP Sys/Skylar/Mean (mmHg): 115 (QS system process) : 62 (QS system process) : 83 (QS system process) Pulse: 109 (QS system process) Datetime: 07/27/2016 19:15 Stage of : Recovery (Lashawn Keller RN) Pain Scale: 0 (Lashawn Keller RN) Pain Presence: None/Denies (Lashawn Keller, RN) Pain Type: N/A (Lashawn Keller, RN) Pain Goal: 0 (Lashawn Keller, RN) Pain Relief Measures: Comfort Measures (Lashawn Keller, PRANAY) Datetime: 07/27/2016 19:02 NBP Sys/Skylar/Mean (mmHg): 120 (QS system process) : 58 (QS system process) : 83 (QS system process) Pulse: 106 (QS system process) Datetime: 07/27/2016 19:00 Stage of : Recovery (Lashawn Karolinefka, RN) Pain Scale: 0 (Lashawn Rameyfjacob, RN) Pain Presence: None/Denies (Lashawn Karolinefjacob, RN) Pain Type: N/A (Lashawn Marhefjacob, RN) Pain Goal: 0 (Lashawn Marhefka, RN) Pain Relief Measures: Comfort Measures (Lashawn Marhefka, RN) Datetime: 07/27/2016 18:47 NBP Sys/Skylar/Mean (mmHg): 108 (QS system process) : 55 (QS system process) : 74 (QS system process) Pulse: 106 (QS system process) Datetime: 07/27/2016 18:45 Stage of : Recovery (Lashawn Keller, RN) Pain Scale: 0 (Lashawn Rameyfjacob, RN) Pain Presence: None/Denies (Lashawn Rameyfka, RN) Pain Type: N/A (Lashawn Marpiafka, RN) Pain Goal: 0 (Lashawn Keller, RN) Pain Relief Measures: Comfort Measures (Lashawn Karolinefka, RN) Datetime: 07/27/2016 18:32 NBP Sys/Skylar/Mean (mmHg): 117 (QS system process) : 57 (QS system process) : 81 (QS system process) Pulse: 103 (QS system process) LaborFlag: Labor (QS system process) Datetime: 07/27/2016 18:29 Vaginal Exam Comments: viable baby girl, see delivery summary (Avis Vitrano, RN) Datetime: 07/27/2016 18:28 Comments: FSE d/c (Avis Vitrano, RN) Datetime: 07/27/2016 18:26 Pushing Progress: with Pushing (Avis Roberta, RN) Datetime: 07/27/2016 18:24 Pushing: Coached on Pushing (Avis Granados RN) Pushing Position: Pushing with Contractions (Avis Granados RN) Stage 2 Comments: Pt to begin pushing with contractions. RN and provider remain at bedside continously assessing FHTs and coaching pt on pushing. (Avis Vitrano, RN) Datetime: 07/27/2016 18:23 Communication Comments: H. Jose Miguel, CNM at bedside. Bed broken down for delivery. (Avis Vitrano, RN) Datetime: 07/27/2016 18:22 I/O Interventions: Conteh Discontinued (Avis Vitrano, RN) Datetime: 07/27/2016 18:18 NBP Sys/Skylar/Mean (mmHg): 122 (QS system process) : 59 (QS system process) : 83 (QS system process) Pulse: 100 (QS system process) Communication Comments: Jonathan Gillespie CNM on unit, notified of SVE. Pt to begin pushing with contractions. (Avis Granados RN) LaborFlag: Labor (QS system process) Datetime: 07/27/2016 18:17 Dilatation (cm): 10.0 (Lashawn Keller RN) Effacement (%): 100 (Lashawn Keller RN) Station: 2 (Lashawn Keller RN) Exam by: Andree Keller RN (Lashawn Keller RN) Datetime: 07/27/2016 18:15 Monitor Mode: External (Lashawn Keller RN) Frequency (min): 2-3 (Lashawn Keller RN) Quality: Moderate to Strong (Lashawn Keller RN) Duration (sec): 50-60 (Lashawn Keller RN) Resting Tone (Palpate): Relaxed (Lashawn Keller RN) Monitor Mode: Internal Scalp Electrode (Lashawn Marhefka, RN) FHR Baseline Rate : 145 (Lashawn Marhefka, RN) FHR Baseline Changes: No Baseline Change (Lashawn Marhefka, RN) Variability: Moderate 6-25 bpm (Lashawn Marhefka, RN) Accelerations: 15X15 (Lashawn Marhefka, RN) Decelerations: Late (Lashawn Marhefka, RN) Datetime: 07/27/2016 18:00 Monitor Mode: External (Lashawn Marhefka, RN) Frequency (min): 2-3 (Lashawn Marhefka, RN) Quality: Mild/Moderate (Lashawn Marhefka, RN) Duration (sec): 40-80 (Lashawn Marhefka, RN) Resting Tone (Palpate): Relaxed (Lashawn Marhefka, RN) Monitor Mode: Internal Scalp Electrode (Lashawn Marhefka, RN) FHR Baseline Rate : 140 (Lashawn Marhefka, RN) FHR Baseline Changes: No Baseline Change (Lashawn Marhefka, RN) Variability: Moderate 6-25 bpm (Lashawn Marhefka, RN) Accelerations: 15X15 (Lashawn Marhefka, RN) Decelerations: None (Lashawn Marhefka, RN)
--- NOTE | 2016-07-27 21:20 | Admission Physical ---
Datetime Report Generated by CPN: 07/27/2016 21:19 CURRENT ADMISSION Hx Assessment: The History has been Reviewed and is Current Chief Complaint: Uterine Contractions Indication for Induction: Polyhydramnios Indication for Induction- Other: Augmentation Admit Impression- Other: Advanced cervical dilation Admit Plan: Admit to Unit; Initiate Labor Protocol; Initiate Labor Augmentation Protocol ALLERGIES Medication Allergies: No Medication Allergies: No Known Allergies (07/16/2016) Latex: No Latex Allergies Food Allergies: None Environmental Allergies: None OBSTETRICAL HISTORY EDC: 07/28/2016 00:00 : 2 Para: 1 Term: 0 : 0 SAB: 0 IAB: 0 Ectopic: 0 Livin Cesareans: 0 VBACs: 0 Multiple Births: 0 Gestational Diabetes: No Rh Sensitization: No Incompetent Cervix: No ZOLTAN: No Infertility: No ART Treatment: No Uterine Anomaly: No IUGR: No Hx Previous C/S: No Macrosomia: No Hx Loss/Stillborn: No PIH: No Hx : No Placenta Previa/Abruption: No Depression/PP Depression: No PTL/PROM: No Post Hemorrhage: No Current Procedures: Ultrasound Obstetrical History Comments: G1: 2013- 41 weeks, girl 8#4oz (no complications) G2: 2016- current SEE RECORDS Alcohol: No Marijuana : No Cocaine: No Other Illicit Drugs: No Cigarettes: Never Smoker. [id number] MEDICAL HISTORY Diabetes: No Blood Transfusion: No Pulmonary Disease (Asthma, TB): No Breast Disease: No Hypertension: No Crew Director Surgery: No Heart Disease: No Hosp/Surgery: Yes Autoimmune Disorder: No Anesthetic Complications: No Kidney Disease: No Abnormal Pap Smear: No Neuro/Epilepsy: No Psychiatric Disorders: No Other Medical Diseases: No Hepatitis/Liver Disease: No Significant Family History: No Varicosities/Phlebitis: No Trauma/Violence : No Thyroid Dysfunction: Yes Medical History Comments: Hypothyroid- synthroid; of first child INFECTIOUS HISTORY Gonorrhea: No Genital Herpes: No Chlamydia: No Tuberculosis: No Syphilis: No Hepatitis: No HIV/AIDS Exposure: No Rash or Viral Illness: No HPV: No PHYSICAL EXAM General: Normal HEENT: Normal Neurologic: Normal Thyroid: Deferred Heart: Normal Lungs: Normal Breast: Normal Back: Deferred Abdomen: Normal Genitourinary Exam: Deferred Extremities: Normal DTRs: Normal Pelvic Type: Adequate VAGINAL EXAM Dilatation: 5 Effacement: 80 Station: 0 Contraction Comments: 2-4 MEMBRANES Membranes: Ruptured Amniotic Fluid Color: Clear FETUS A EGA: 39.6 Monitoring: External US FHR- Baseline: 135 Variability: Moderate 6-25bpm Decelerations: None FHR Category: Category I Estimated Weight (gm): 3500 Presentation: Vertex Admit Comment: Pt reports consistent pressure, unsure how often she is contractions, but feels like she has to push. See record: Hx hypothyroidism, uncontrolled, non-compliant with synthroid at times. Polyhydramnios-passed 1 hour 111 Anemia on iron Will admit to L _ D, term, labor augmentation Advanced cervical dilation GBS negative Anticipate PLANS FOR LABOR AND DELIVERY Labor and Delivery: None Pain Management: Epidural Feeding Preference: Both Benefit of Breast Feed Discussed: Yes Circumcision: N/A INFORMED CONSENT Assignment: Telma Hawkins MD Signature: with User ID: Rosalina : with User ID: Rosalina
[2016-07-27] MEDS: IBUPROFEN 800 MG TABLET PO SCH (21:36)
[2016-07-28] MEDS: IBUPROFEN 800 MG TABLET PO SCH ×3 (05:25→23:03)
[2016-07-28 07:01] LABS: HEMOGLOBIN 10.9 g/dL (12.0-15.5); HGB HCT DIFFERENCE 0.7; MEAN CORPUSCULAR HEMOGLOBIN 28.4 pg (27.0-33.4); MEAN CORPUSCULAR HGB CONC 33.9 g/dL (32.0-36.0); MEAN CORPUSCULAR VOLUME 84 fl (80-97); RED BLOOD COUNT 3.82 10^6/uL (3.72-5.28); RED CELL DISTRIBUTION WIDTH 14.5 % (11.5-14.0); WHITE BLOOD COUNT 10.9 10^3/uL (4.0-10.5)
--- NOTE | 2016-07-28 07:01 | L&D Flow Sheet ---
LD Flowsheet Datetime Report Generated by CPN: 07/28/2016 07:00 Datetime: 07/27/2016 20:46 NBP Sys/Skylar/Mean (mmHg): 115 (QS system process) : 62 (QS system process) : 83 (QS system process) Pulse: 104 (QS system process) Datetime: 07/27/2016 20:45 Pain Scale: 0 (Kathy Juno, RN) Pain Presence: None/Denies (Kathy Juno, RN) Pain Type: N/A (Kathy Juno, RN) Datetime: 07/27/2016 20:32 NBP Sys/Skylar/Mean (mmHg): 113 (QS system process) : 66 (QS system process) : 80 (QS system process) Pulse: 101 (QS system process) Temperature (F): 98.0 (Kathy Juno, RN) Temperature (C): 36.7 (QS system process) Temperature Route: Axillary (Kathy Juno, RN) Datetime: 07/27/2016 20:30 Pain Scale: 0 (Kathy Juno, RN) Pain Presence: None/Denies (Kathy Juno, RN) Pain Type: N/A (Kathy Juno, RN) Datetime: 07/27/2016 20:17 NBP Sys/Skylar/Mean (mmHg): 117 (QS system process) : 66 (QS system process) : 85 (QS system process) Pulse: 102 (QS system process) Datetime: 07/27/2016 20:15 Pain Scale: 0 (Kathy Juno, RN) Pain Presence: None/Denies (Kathy Juno, RN) Pain Type: N/A (Kathy Juno, RN) Datetime: 07/27/2016 20:02 NBP Sys/Skylar/Mean (mmHg): 118 (QS system process) : 66 (QS system process) : 86 (QS system process) Pulse: 109 (QS system process) Datetime: 07/27/2016 20:00 Pain Scale: 0 (Kathy Juno, RN) Pain Presence: None/Denies (Kathy Juno, RN) Pain Type: N/A (Kathy Juno, RN) Datetime: 07/27/2016 19:47 NBP Sys/Skylar/Mean (mmHg): 117 (QS system process) : 64 (QS system process) : 85 (QS system process) Pulse: 104 (QS system process) Temperature (F): 98.0 (Kathy Juno, RN) Temperature (C): 36.7 (QS system process) Temperature Route: Axillary (Kathy Juno, RN) Datetime: 07/27/2016 19:45 Pain Scale: 0 (Kathy Juno, RN) Pain Presence: None/Denies (Kathy Juno, RN) Pain Type: N/A (Kathy Juno, RN) Datetime: 07/27/2016 19:32 NBP Sys/Skylar/Mean (mmHg): 115 (QS system process) : 63 (QS system process) : 81 (QS system process) Pulse: 100 (QS system process) Datetime: 07/27/2016 19:30 Pain Scale: 0 (Kathy Juno, RN) Pain Presence: None/Denies (Kathy Juno, RN) Pain Type: N/A (Kathy Juno, RN) Datetime: 07/27/2016 19:17 NBP Sys/Skylar/Mean (mmHg): 115 (QS system process) : 62 (QS system process) : 83 (QS system process) Pulse: 109 (QS system process) Datetime: 07/27/2016 19:15 Stage of : Recovery (Lashawn Keller RN) Pain Scale: 0 (Lashawn Keller RN) Pain Presence: None/Denies (Lashawn Keller RN) Pain Type: N/A (Lashawn Keller, PRANAY) Pain Goal: 0 (Lashawn Keller RN) Pain Relief Measures: Comfort Measures (Lashawn Keller RN) Datetime: 07/27/2016 19:02 NBP Sys/Skylar/Mean (mmHg): 120 (QS system process) : 58 (QS system process) : 83 (QS system process) Pulse: 106 (QS system process) Datetime: 07/27/2016 19:00 Stage of : Recovery (Lashawn Keller RN) Pain Scale: 0 (Lashawn Keller RN) Pain Presence: None/Denies (Lashawn Keller RN) Pain Type: N/A (Lashawn Keller RN) Pain Goal: 0 (Lashawn Keller RN) Pain Relief Measures: Comfort Measures (Lashawn Keller RN)
--- NOTE | 2016-07-28 09:50 | PDOC PROGRESS REPORT ---
Subjective-OB Subjective: Post Delivery Day: 1 31 year old. Denies any needs at this time, voiding without difficulty, pain well controlled, lochia is stable. Physical Exam (OB) Vital Signs: Temp Pulse Resp BP Pulse Ox 97.8 F 94 17 123/76 99 07/28/16 08:52 07/28/16 08:52 07/28/16 08:52 07/28/16 08:52 07/28/16 08:52 Intake & Output 07/27/16 07/28/16 07/29/16 06:59 06:59 06:59 Intake Total 400 Balance 400 Weight 97.1 kg - Lochia Lochia Amount: Small 10-25 ml Lochia Color: Rubra/Red - Abdomen Description: Tender, Soft Hernia Present: No Fundal Description: Firm, Midline Fundal Height: u/u - u/2 Objective-Diagnostic Laboratory: 07/28/16 06:42 07/27/16 07/27/16 07/27/16 11:01 11:38 11:38 WBC 9.4 RBC 4.06 Hgb 11.6 L Hct 33.7 L MCV 83 MCH 28.5 MCHC 34.4 RDW 14.4 H Plt Count 184 Seg Neutrophils % 77.8 Lymphocytes % 14.2 Monocytes % 7.1 Eosinophils % 0.8 Basophils % 0.1 Absolute Neutrophils 7.3 Absolute Lymphocytes 1.3 Absolute Monocytes 0.7 Absolute Eosinophils 0.1 Absolute Basophils 0.0 Urine Color YELLOW Urine Appearance SLIGHTLY-CLOUDY Urine pH 7.0 Ur Specific [place] 1.010 Urine Protein NEGATIVE Urine Glucose (UA) NEGATIVE Urine Ketones NEGATIVE Urine Blood NEGATIVE Urine Nitrite NEGATIVE Ur Leukocyte Esterase MODERATE H Blood Type A POSITIVE Antibody Screen NEGATIVE 07/28/16 06:42 WBC 10.9 H RBC 3.82 Hgb 10.9 L Hct 32.0 L MCV 84 MCH 28.4 MCHC 33.9 RDW 14.5 H Plt Count 145 L Seg Neutrophils % Lymphocytes % Monocytes % Eosinophils % Basophils % Absolute Neutrophils Absolute Lymphocytes Absolute Monocytes Absolute Eosinophils Absolute Basophils Urine Color Urine Appearance Urine pH Ur Specific [employer] [place] Urine Protein Urine Glucose (UA) Urine Ketones Urine Blood Urine Nitrite Ur Leukocyte Esterase Blood Type Antibody Screen Assessment and Plan(PN) - Assessment and Plan (1) Vaginal delivery Is this a current diagnosis for this admission?: YesPlan: routine pp care anticipate d/c home tomorrow - Time Spent with Patient Time with patient: Less than 15 minutes Critical Time spent with patient: Less than 15 minutes Medications reviewed and adjusted accordingly: Yes - Disposition Anticipated Discharge: Home Within: within 24 hours
[2016-07-28] MEDS ORDERED: LEVOTHYROXINE SODIUM 0.1 MG TABLET PO SCH (10:00)
[2016-07-28] MEDS: PRENATAL VITAMIN W-O CA NO5/FE FUMARATE/FA CAPSULE PO SCH (11:05)
[2016-07-28] MEDS: FERROUS SULFATE 325 MG TABLET PO SCH ×2 (11:06→17:20)
[2016-07-28] MEDS: SENNOSIDES/DOCUSATE 8.6-50 MG 1 EACH TABLET PO SCH (11:06)
[2016-07-28] MEDS: DOCUSATE SODIUM 100 MG CAPSULE PO SCH ×2 (11:06→17:20)
--- NOTE | 2016-07-28 18:01 | L&D General Admission ---
General Admit Datetime Report Generated by CPN: 07/28/2016 18:00 INFORMATION Patient Age: 30 (01/15/2016 17:42:QS system process) EDC: 07/28/2016 00:00 (05/27/2016 04:46:Gillian Orosco RN) : 2 (05/27/2016 04:46:Gillian Orosco RN) Para: 1 (05/27/2016 08:21:Alda Kohli RN) Term: 0 (05/27/2016 04:46:Suzette Tobias RN) : 0 (05/27/2016 04:46:Suzette Tobias RN) Spontaneous Abortions: 0 (05/27/2016 04:46:Suzette Tobias RN) Induced Abortions: 0 (05/27/2016 04:46:Suzette Tobias RN) Livin (05/27/2016 04:46:Gillian Orosco RN) Cesareans: 0 (05/27/2016 04:46:Suzette Tobias RN) VBACs: 0 (05/27/2016 04:46:Suzette Tobias RN) Ectopic: 0 (05/27/2016 04:46:Suzette Tobias RN) Multiple Births: 0 (05/27/2016 04:46:Suzette Tobias RN) Baby, Number in Womb: 1 (05/27/2016 08:21:Alda Kohli RN) CARE Primary Police Pilot: [facility] (05/27/2016 04:46:Suzette Tobias RN) Month of 1st Visit: October (05/27/2016 04:46:Suzette Tobias RN) Adequate Care: Yes (05/27/2016 04:46:Suzette Tobias RN) Prepregnancy Weight (lb): 190 (05/27/2016 04:46:Lashawn Keller RN) Prepregnancy Weight (kg): 86.4 (05/27/2016 04:46:QS system process) Height (in): 64 (07/27/2016 21:18:QS system process) ALLERGIES Medication Allergy: No (05/27/2016 04:46:Suzette Tobias RN) Medication Allergies: No Known Allergies (07/16/2016) (07/16/2016 12:34:QS system process) Latex Allergy: No Latex Allergies (05/27/2016 04:46:Suzette Tobias RN) Food Allergies: None (05/27/2016 04:46:Suzette Ring RN) Environmental Allergies: None (05/27/2016 04:46:Suzette Ring, RN) COMMUNICATION Primary Language: Bangladeshi (05/27/2016 04:46:Suzette Tobias RN) Medical Tx Preferred Language: Bangladeshi (05/27/2016 04:46:Suzette Ring RN) Communication Barrier(s): None (05/27/2016 04:46:Suzette Ring, RN) DEMOGRAPHICS Address: [address] [place] [id number] (05/27/2016 04:48:QS system process) Zipcode: [id number] (05/27/2016 04:48:QS system process) Home (01/15/2016 17:42:QS system process) N: [id number] (01/15/2016 17:42:QS system process) Next of Kin Name: KELECHI JENSEN (01/15/2016 17:42:QS system process) Next of Kin (01/15/2016 17:42:QS system process) Next of Kin Relationship: SPO (01/15/2016 17:42:QS system process) Date of : 1985 (01/15/2016 17:42:QS system process) Marital Status: (01/15/2016 17:42:QS system process) Sex: Female (01/15/2016 17:42:QS system process) Race: (01/15/2016 17:42:QS system process) Ethnicity: Non- or (01/15/2016 17:42:QS system process) Confucianism: Temple (01/15/2016 17:42:QS system process) DRUG AND ALCOHOL USE Alcohol: No (05/27/2016 04:46:Suzette Tobias RN) Cigarettes: Never Smoker. [phone] (05/27/2016 04:46:Suzette Tobias RN) Marijuana: No (05/27/2016 04:46:Suzette Ring, RN) Cocaine: No (05/27/2016 04:46:Suzette Ring RN) Other Illicit Drugs: No (05/27/2016 04:46:Suzette Ring RN) VACCINE HISTORY Influenza Vaccine: No (05/27/2016 04:46:Suzette Tobias RN) Pneumococcal Vaccine: No (05/27/2016 04:46:Suzette Tobias RN) Tetanus Vaccine: No (05/27/2016 04:46:Suzette Tobias RN) Tdap Vaccine: No (05/27/2016 04:46:Suzette Tobias RN) Hepatitis B Vaccine: Yes (05/27/2016 04:46:Suzette Tobias RN) Environmental Field Technician: [facility] (05/27/2016 04:46:Suzette Tobias RN) Feeding Preference: Both (05/27/2016 04:46:Suzette Tobias RN) Benefit of Breast Feed Discussed: Yes (05/27/2016 04:46:Suzette Tobias RN) Circumcision: N/A (05/27/2016 04:46:Suzette Tobias RN) Tubal Ligation: No (05/27/2016 04:46:Suzette Tobias RN) Tubal Authorization Signed: N/A (05/27/2016 04:46:Suzette Tobias RN) Consent: N/A (05/27/2016 04:46:Suzette Tobias RN) Consent Signed: N/A (05/27/2016 04:46:Suzette Tobias RN) Pain Management Plans: Epidural (05/27/2016 04:46:Suzette Tobias RN) Plans for Labor and Delivery: None (05/27/2016 04:46:Suzette Tobias RN) Support Person: Kelechi Jensen (05/27/2016 04:46:Suzette Tobias RN) Support Person Relationship: (05/27/2016 04:46:Suzette Tobias RN) Cultural/Spritual Practice: No (05/27/2016 04:46:Suzette Tobias RN) Spir/Cult Dietary Needs: No (05/27/2016 04:46:Suzette Tobias RN) LIVING SITUATION/DISCHARGE PLAN Living Arrangements: House (05/27/2016 04:46:Suzette Tobias RN) Adequate Access to:: Electric; Heat; Refrigeration; Plumbing/Running water; Phone; Transportation (05/27/2016 04:46:Suzette Tobias RN) WIC Program: No (05/27/2016 04:46:Suzette Tobias RN) Discharge Rack Washer Person: Kelechi (05/27/2016 04:46:Suzette Tobias RN) Person to Help after Discharge: Kelechi (05/27/2016 04:46:Suzette Tobias RN) Currently Using Commun Resources: No (05/27/2016 04:46:Suzette Tobias RN) Outside Agency/Mainframe Software Developer: N/A (05/27/2016 04:46:Suzette Tobias RN) Car Seat for Discharge: Yes (05/27/2016 04:46:Lashawn Keller RN) Adoption Requested: No (05/27/2016 04:46:Suzette Tobias RN) Pt Contact w/infant Post : N/A (05/27/2016 04:46:Suzette Tobias RN) LABS Blood Type: A Positive (05/27/2016 04:46:Gillian Orosco RN) Antibody Screen: neg (05/27/2016 04:46:Gillian Orosco RN) Rho(G) this : Not Applicable (05/27/2016 04:46:Gillian Orosco RN) Hemoglobin: 10.9 L (07/28/2016 06:42:QS system process) Hematocrit: 32.0 L (07/28/2016 06:42:QS system process) MCV: 84 (07/28/2016 06:42:QS system process) Group Beta Strep: Negative (05/27/2016 04:46:Avis Granados RN) Gonorrhea: Negative (05/27/2016 04:46:Avis Granados RN) Chlamydia: Negative (05/27/2016 04:46:Avis Granados RN) RPR/VDRL: Nonreactive (05/27/2016 04:46:Gillian Orosco RN) HIV Exposure Test: Negative (05/27/2016 04:46:Gillian Orosco RN) Hepatitis B: Negative (05/27/2016 04:46:Gillian Orosco RN) Rubella: Immune (05/27/2016 04:46:Gillian Orosco RN) OB/PREVIOUS HISTORY Previous Procedures: Ultrasound (05/27/2016 04:46:Suzette Tobias RN) Current Procedures: Ultrasound (05/27/2016 04:46:Suzette Tobias RN) History of Previous : No (05/27/2016 04:46:Suzette Tobias RN) History of Gestational Diabetes: No (05/27/2016 04:46:Suzette Tobias RN) History of PIH: No (05/27/2016 04:46:Suzette Tobias RN) History of Incompetent Cervix: No (05/27/2016 04:46:Suzette Tobias RN) History of Placenta Previa/Abrup: No (05/27/2016 04:46:Suzette Tobias RN) History of Macrosomia: No (05/27/2016 04:46:Suzette Tobias RN) History of IUGR: No (05/27/2016 04:46:Suzette Tobias RN) History of Hemorrhage: No (05/27/2016 04:46:Suzette Tobias RN) History of Loss/Stillborn: No (05/27/2016 04:46:Suzette Tobias RN) History of : No (05/27/2016 04:46:Suzette Tobias RN) History of D (Rh) Sensitization: No (05/27/2016 04:46:Suzette Tobias RN) History Recurrent Loss/Stillborn: No (05/27/2016 04:46:Suzette Tobias RN) History Depression/PP Depression: No (05/27/2016 04:46:Suzette Tobias RN) History of Uterine Anomaly/ZOLTAN: No (05/27/2016 04:46:Suzette Tobias RN) History of Infertility: No (05/27/2016 04:46:Suzette Tobias RN) History of ART Treatment: No (05/27/2016 04:46:Suzette Tobias RN) History of ZOLTAN: No (05/27/2016 04:46:Suzette Tobias RN) Comments Obstetrical History: G1: 2012- 41 weeks, girl 8#4oz (no complications) G2: 2016- current (05/27/2016 04:46:Suzette Tobias RN) MEDICAL HISTORY Med Hx Diabetes: No (05/27/2016 04:46:Suzette Tobias RN) Med Hx Hypertension: No (05/27/2016 04:46:Suzette Tobias RN) Med Hx Heart Disease: No (05/27/2016 04:46:Suzette Tobias RN) Med Hx Autoimmune Disorder: No (05/27/2016 04:46:Suzette Tobias RN) Med Hx Kidney Disease/UTI: No (05/27/2016 04:46:Suzette Tobias RN) Med Hx Neurologic/Epilepsy: No (05/27/2016 04:46:Suzette Tobias RN) Med Hx Psychiatric Disorders: No (05/27/2016 04:46:Suzette Tobias RN) Med Hx Hepatitis/Liver Disease: No (05/27/2016 04:46:Suzette Tobias RN) Med Hx Varicosities/Phlebitis: No (05/27/2016 04:46:Suzette Tobias RN) Med Hx Thyroid Dysfunction: Yes (05/27/2016 04:46:Gillian Orosco RN) Med Hx Trauma/Violence: No (05/27/2016 04:46:Suzette Tobias RN) Med Hx Blood Transfusion: No (05/27/2016 04:46:Suzette Tobias RN) Med Hx Pulmonary (Asthma,TB): No (05/27/2016 04:46:Suzette Tobias RN) Med Hx Breast: No (05/27/2016 04:46:Suzette Tobias RN) Med Hx COSTUME MISTRESS Surgery: No (05/27/2016 04:46:Suzette Tobias RN) Med Hx Hospitalization/Surgery: Yes (05/27/2016 04:46:Suzette Tobias RN) Med Hx Anesthetic Complications: No (05/27/2016 04:46:Suzette Tobias RN) Med Hx Abnormal Pap Smear: No (05/27/2016 04:46:Suzette Tobias RN) Other Medical Diseases: No (05/27/2016 04:46:Suzette Tobias RN) Med Hx Significant Family Hx: No (05/27/2016 04:46:Suzette Tobias RN) Details of Med/Surg Hx: Hypothyroid- synthroid; of first child (05/27/2016 04:46:Suzette Tobias RN) INFECTIOUS HISTORY Inf Hx Gonorrhea: No (05/27/2016 04:46:Suzette Tobisa RN) Inf Hx Chlamydia: No (05/27/2016 04:46:Suzette Tobias RN) Inf Hx Syphilis: No (05/27/2016 04:46:Suzette Tobias RN) Inf Hx HIV/AIDS: No (05/27/2016 04:46:Suzette Tobias RN) Inf Hx Human Papilloma Virus: No (05/27/2016 04:46:Suzette Tobias RN) Inf Hx Pt/Partner Genital Herpes: No (05/27/2016 04:46:Suzette Tobias RN) Inf Hx Tuberculosis/Exposure: No (05/27/2016 04:46:Suzette Tobias RN) Inf Hx Hepatitis B,C: No (05/27/2016 04:46:Suzette Tobias RN) Inf Hx Rash or Viral Illness: No (05/27/2016 04:46:Suzette Tobias RN) GENETIC HISTORY Gen Hx Age >=35 at NARCISO: No (05/27/2016 04:46:Suzette Tobias RN) Gen Hx Thalassemia: No (05/27/2016 04:46:Suzette Tobias RN) Gen Hx Congenital Heart Defect: No (05/27/2016 04:46:Suzette Tobias RN) Gen Hx Neural Tube Defect: No (05/27/2016 04:46:Suzette Tobias RN) Gen Hx Down's Syndrome: No (05/27/2016 04:46:Suzette Tobias RN) Gen Hx Kojo-Sachs: No (05/27/2016 04:46:Suzette Tobias RN) Gen Hx Hoda: No (05/27/2016 04:46:Suzette Tobias RN) Gen Hx Familial Dysautonomia: No (05/27/2016 04:46:Suzette Tobias RN) Gen Hx Sickle Cell Disease/Trait: No (05/27/2016 04:46:Suzette Tobias RN) Gen Hx Hemophilia/Blood Disorder: No (05/27/2016 04:46:Suzette Tobias RN) Gen Hx Muscular Dystrophy: No (05/27/2016 04:46:Suzette Tobias RN) Gen Hx Cystic Fibrosis: No (05/27/2016 04:46:Suzette Tobias RN) Gen Hx Huntingtons Chorea: No (05/27/2016 04:46:Suzette Tobias RN) Gen Hx Mental Retardation/Autism: Yes (05/27/2016 04:46:Suzette Tobias RN) Gen Hx Tested for Fragile X: No (05/27/2016 04:46:Suzette Tobias RN) Gen Hx Other Inher/Chromosomal: No (05/27/2016 04:46:Suzette Tobias RN) Gen Hx Maternal Metabolic DO: No (05/27/2016 04:46:Suzette Tobias RN) Gen Hx Pt Father or FOB Defect: No (05/27/2016 04:46:Suzette Tobias RN) Gen Hx Other Genetic History: No (05/27/2016 04:46:Suzette Tobias RN) Gen Hx Drugs/Meds since LMP: Yes (05/27/2016 04:46:Suzette Tobias RN) Gen Hx Medications: Levothyroxine; PNV; theraflu; tylenol cold (05/27/2016 04:46:Suzette Tobias RN) Details of Genetic History: cousin's son has autism (05/27/2016 04:46:Suzette Tobias RN)
--- NOTE | 2016-07-28 18:01 | L&D Current Admission ---
Current Admit Datetime Report Generated by CPN: 07/28/2016 18:00 ADMISSION INFORMATION Current Admit Date/Time: 07/27/2016 11:14 (07/27/2016 11:14:Lashawn Keller RN) Reason for Admission: Induction of Labor (07/27/2016 11:14:Lashawn Keller RN) Chief Complaint: Other (Annotations: vaginal pressure ) (07/27/2016 11:20:Lashawn Keller RN) EGA per Dates: 39.6 (07/27/2016 11:14:QS system process) Method of Arrival: Ambulatory (07/27/2016 11:14:Lashawn Keller RN) Admitted From: Home (07/27/2016 11:14:Lashawn Keller RN) Reason for Induction: Polyhydramnios (07/27/2016 11:14:Lashawn Keller RN) Records Available: Yes (07/27/2016 11:14:Lashawn Keller RN) General Admission Information: Reviewed; Updated; Confirmed (07/27/2016 11:14:Lashawn Keller RN) General Admission Reviewed By: Andree Keller RN (07/27/2016 11:14:Lashawn Keller RN) BELONGINGS/ADVANCED DIRECTIVES Valuables/Personal Effects: Cell Phone (07/27/2016 11:14:Lashawn Keller RN) Other Belongings: See Belongings sheet (07/27/2016 11:14:Lashawn Keller RN) Disposition of Belongings: Kept with Patient (07/27/2016 11:14:Lashawn Keller RN) Advance Direct for Healthcare: No, and Wants No Information (07/27/2016 11:14:Lashawn Keller RN) Durable Power of Primary Substance Abuse Counselor: No (07/27/2016 11:14:Lashawn Keller RN) Living Will: No (07/27/2016 11:14:Lashawn Keller RN) Organ Donor: No (07/27/2016 11:14:Lashawn Keller RN) Pt Rights Information Given: Yes (07/27/2016 11:14:Lashawn Keller RN) Pt Understands Pt Rights: Yes (07/27/2016 11:14:Lashawn Keller RN) LEARNING ASSESSMENT Knowledge Level: Understands L_D Process; Understands Care Activities; Had Pre-Hospital Education; Understands Diagnosis (07/27/2016 11:14:Lashawn Keller RN) Barriers to Learning: None (07/27/2016 11:14:Lashawn Keller RN) Learning Readiness: Motivated (07/27/2016 11:14:Lashawn Keller RN) Learns Best By: 1 to 1 Instruction (07/27/2016 11:14:Lashawn Keller RN) Learning Needs: Labor and Delivery Process; Pain Management; Symptoms to Report; Treatment Plan; Medication; Diagnosis; Nutrition; Equipment; Infant Care; Community Resources (07/27/2016 11:14:Lashawn Keller RN) DOMESTIC VIOLANCE SCREENING Dom Viol Threatened/Hurt: No (07/27/2016 11:14:Lashawn Keller RN) Hx of Abuse/Neglect past 2yrs: No (07/27/2016 11:14:Lashawn Keller RN) Feel Unsafe Going Home: No (07/27/2016 11:14:Lashawn Keller RN) Addt'l Observ Indicating Abuse: No (07/27/2016 11:14:Lashawn Keller RN) Reason Unable to Complete Screen: N/A, Screen Completed (07/27/2016 11:14:Lashawn Keller RN) Considered Personal Harm/Suicide: No (07/27/2016 11:14:Lashawn Keller RN) NUTRITIONAL/FUNCTIONAL SCREENING Problem with Appetite >5 Days: No (07/27/2016 11:14:Lashawn Keller RN) Chew/Swallow Difficulties: No (07/27/2016 11:14:Lashawn Keller RN) Inappropriate Wt Gain/Loss: No (07/27/2016 11:14:Lashawn Keller RN) Presence Skin Breakdown/Ulcer: No (07/27/2016 11:14:Lashawn Keller RN) Special Diet: No (07/27/2016 11:14:Lashawn Keller RN) Pt Requests Telecommunications Analyst Visit: No (07/27/2016 11:14:Lashawn Keller RN) Hx of Any of the Following?: N/A (07/27/2016 11:14:Lashawn Keller RN) New Diagnosis of: N/A (07/27/2016 11:14:Lashawn Keller RN) Requires Assist w/Ambulation: No (07/27/2016 11:14:Lashawn Keller RN) Uses Assist Device to Ambulate: No (07/27/2016 11:14:Lashawn Keller RN) Pt Requires Help w/ADL's: No (07/27/2016 11:14:Lashawn Keller RN)
--- NOTE | 2016-07-28 18:16 | L&D Care Plan ---
LD CARE PLANS Datetime Report Generated by CPN: 07/28/2016 18:15 Datetime: 07/27/2016 11:19 Pain State: Risk For (Lashawn Keller RN) Related To: Labor and Delivery Process; Treatment and Procedures (Lashawn Keller RN) Goal(s): Patients Pain will be Assessed and Managed; Patient will Verbalize Adequate Relief of Pain or the Ability to [place] with Current Pain (Lashawn Keller RN) Interventions: Assess Pain Severity on Scale of 0 (None) to 5 (Severe); Assess Type, Location and Intensity of Pain Each Time Client Reports Discomfort and Notify Provider if Unusal Pain Develops; Encourage Proper Breathing and Relaxation Techniques; Offer Alternatives Such as Repositioning, Calm Environment, Massages, Diversional Activities, Ice Pack, Splinting, and Ambulation; Administer Analgesics as Ordered; Assist with Epidural Placement as Appropriate; Evaluate Therapeutic Effectiveness of Medication and Treatments (Lashawn Keller RN) Outcome: Patient will Report Absence or Relief of Pain Consistent with Established Pain Goal (Lashawn Keller RN) Status: Ongoing (Lashawn Keller RN) Outcome: Patient will have a Decrease in Signs and Symptoms of Discomfort (Lashawn Keller RN) Status: Ongoing (Lashawn Keller RN) Outcome: Pain will be Controlled During Procedures (Lashawn Keller RN) Status: Ongoing (Lashawn Keller RN) Anxiety State: Risk For (Lashawn Keller RN) Related To: Labor and Delivery Process; Fear of Unknown; Situational Crisis; Medical Interventions; Significant Life Event (Lashawn Keller RN) Goal(s): Patient will have Decreased Anxiety and be able to Function at Acceptable Levels (Lashawn Keller RN) Interventions: Assess Verbal and Nonverbal Behavioral Indicators of Anxiety; Assist Patient to Identify and Verbalize Symptoms of Anxiety; Identify and Demonstrate Techniques to Control Anxiety; Assist Patient with Coping Mechanisms to Manage Anxiety; Provide Theraputic Touch for the Patient; Explain to Patient, Using a Calm Reassuring Approach and Nonmedical Terms, All Activities, Procedures, and Concerns; Instruct Patient and Family about Post Discharge Care, Limitations, Symptoms to Report and Resources Available (Lashawn Keller RN) Outcome: Patient will Identify, Verbalize and Demonstrate Techniques to Control Anxiety (Lashawn Keller RN) Status: Ongoing (Lashawn Keller RN) Outcome: Patient's Posture, Facial Expressions, Gestures and Activity Level will Reflect Decreased Anxiety (Lashawn Keller RN) Status: Ongoing (Lashawn Keller RN) Outcome: Patient will Verbalize a Sense of Control and/or Acceptance of the Situation (Lashawn Keller RN) Status: Ongoing (Lashawn Keller RN) Status: Ongoing (Lashawn Keller RN) Knowledge Deficit State: Risk For (Lashawn Keller RN) Related To: Labor and Delivery Process; Treatment and Procedures; Impending Alterations in Family Dynamics (Lashawn Keller RN) Goal(s): Patient will Accurately Verbalize Understanding of Plan of Care and Treatment; Patient and Family will Accurately Verbalize Understanding of the Disease Process (Lasahwn Keller RN) Interventions: Assess Motivation and Willingness of Patient/Family to Learn; Assess Preferred Learning Mode: One to One Instruction, Reading, Videos, Group Discussion or Demonstration; Assess Barriers to Learning: Pain, Emotional State, Language Barrier, Cognitive Impairment, Visual or Hearing Deficits; Assess Patient and Family Knowledge of Disease Process, Medications and Treatment; Discuss Therapy and/or Treatment Options, Describe Rationale Behind Management, Therapy and Treatment Recommendations; Instruct Patient and Family on Signs and Symptoms to Report; Instruct Patient and Family on Medication Effects and Side Effects; Provide Appropriate and Timely Education Using Multiple Techniques; Provide Patient and Family with Support Group Information and Resources; Give Clear and Thorough Explanations and Demonstrations (Lashawn Keller RN) Outcome: Patient and Family will Verbalize Understanding of Condition, Treatment and Signs and Symptoms to Report (Lashawn Keller RN) Status: Ongoing (Lashawn Keller RN) Outcome: Patient will Identify Perceived Learning Needs and Express Motivation to Learn (Lashawn Keller RN) Status: Ongoing (Lashawn Keller RN) Outcome: Patient will Verbalize Understanding of Desired Content, and/or Performs Desired Skill Prior to Discharge (Lashawn Keller RN) Status: Ongoing (Lashawn Keller RN) Infection State: Risk For (Lashawn Keller RN) Related To: Prolonged Labor or Induction; Invasive Procedures (Lashawn Keller RN) Goal(s): The Patient will be Free of Infection, Vital Signs Stable and Lab Work within Normal Parameters (Lashawn Keller RN) Interventions: Instruct and Reinforce Proper Handwashing, Hygiene, and Care Techniques to Patient and Family; Monitor Vital Signs; Monitor Patient for the Following Signs of Infection: Fever, Abdominal Tenderness, Unusual Discharge; Monitor Aminiotic Fluid, Urine and Lochia for Color and Odor; Observe Wounds, Incisions and Invasive Line Sites for Redness, Drainage and Edema; Assess IV Sites per Hospital Policy; Monitor Lab and Test Results and Notify Provider of Abnormal Findings; Assess Nutritional Status and Promote Good Nutrition (Lashawn Keller RN) Outcome: Patient will Remain Free of Infection (Lashawn Keller RN) Status: Ongoing (Lashawn Keller RN) Outcome: Infection will be Recognized Early to Allow for Prompt Treatment (Lashawn Keller RN) Status: Ongoing (Lashawn Keller RN) Outcome: Patient will have Vital Signs Within Expected Range (Lashawn Keller RN) Status: Ongoing (Lashawn Keller RN) Impaired Skin Integrity State: Risk For (Lashawn Keller RN) Related To: Vaginal Delivery; Invasive Procedures (Lashawn Keller RN) Goal(s): Patient will Maintain Optimal Skin Integrity, Free of Breakdown, Injury or Infection (Lashawn Keller RN) Interventions: Complete Screening for Pressure Ulcer Risk and Initiate Protocol per Hospital Policy; Monitor Site of Skin Impairment for Color Changes, Redness, Swelling, Warmth, Pain or Other Signs of Infection; Encourage and Assist with Position Changes; Monitor Patient's Mobility Status; Provide Adequate Nutrition and Fluids; Teach Patient Appropriate Hygienic Care; Teach Patient/Family Skin Care Management (Lashawn Keller RN) Outcome: Patient will not have Evidence of Injury Such as Skin Breakdown, Scrapes, Cuts, or Bruising (Lashawn Keller RN) Status: Ongoing (Lashawn Keller RN) Outcome: Patient will Report Any Altered Sensation or Pain at Site of Skin Impairment (Lashawn Keller RN) Status: Ongoing (Lashawn Keller RN) Outcome: Patients Incisions and Wounds will be without Signs or Symptoms of Infection (Lashawn Keller RN) Status: Ongoing (Lashawn Keller RN) Outcome: Patient will Demonstrate Understanding of Plan to Heal Skin and Prevent Reinjury and Verbalize Risk Factors (Lashawn Keller RN) Status: Ongoing (Lashawn Keller RN) Datetime: 07/27/2016 11:16 Pain State: Risk For (Lashawn Keller RN) Related To: Labor and Delivery Process; Treatment and Procedures (Lashawn Keller RN) Goal(s): Patients Pain will be Assessed and Managed; Patient will Verbalize Adequate Relief of Pain or the Ability to [place] with Current Pain (Lashawn Keller RN) Interventions: Assess Pain Severity on Scale of 0 (None) to 5 (Severe); Assess Type, Location and Intensity of Pain Each Time Client Reports Discomfort and Notify Provider if Unusal Pain Develops; Encourage Proper Breathing and Relaxation Techniques; Offer Alternatives Such as Repositioning, Calm Environment, Massages, Diversional Activities, Ice Pack, Splinting, and Ambulation; Administer Analgesics as Ordered; Assist with Epidural Placement as Appropriate; Evaluate Therapeutic Effectiveness of Medication and Treatments (Lashawn Keller RN) Outcome: Patient will Report Absence or Relief of Pain Consistent with Established Pain Goal (Lashawn Keller RN) Status: Ongoing (Lashawn Keller RN) Outcome: Patient will have a Decrease in Signs and Symptoms of Discomfort (Lashawn Keller RN) Status: Ongoing (Lashawn Keller RN) Outcome: Pain will be Controlled During Procedures (Lashawn Keller RN) Status: Ongoing (Lashawn Keller RN) Anxiety State: Risk For (Lashawn Keller RN) Related To: Labor and Delivery Process; Fear of Unknown; Situational Crisis; Medical Interventions; Significant Life Event (Lashawn Keller RN) Goal(s): Patient will have Decreased Anxiety and be able to Function at Acceptable Levels (Lashawn Keller RN) Interventions: Assess Verbal and Nonverbal Behavioral Indicators of Anxiety; Assist Patient to Identify and Verbalize Symptoms of Anxiety; Identify and Demonstrate Techniques to Control Anxiety; Assist Patient with Coping Mechanisms to Manage Anxiety; Provide Theraputic Touch for the Patient; Explain to Patient, Using a Calm Reassuring Approach and Nonmedical Terms, All Activities, Procedures, and Concerns; Instruct Patient and Family about Post Discharge Care, Limitations, Symptoms to Report and Resources Available (Lashawn eKller RN) Outcome: Patient will Identify, Verbalize and Demonstrate Techniques to Control Anxiety (Lashawn Keller RN) Status: Ongoing (Lashawn Keller RN) Outcome: Patient's Posture, Facial Expressions, Gestures and Activity Level will Reflect Decreased Anxiety (Lashawn Keller RN) Status: Ongoing (Lashawn Keller RN) Outcome: Patient will Verbalize a Sense of Control and/or Acceptance of the Situation (Lashawn Keller RN) Status: Ongoing (Lashawn Keller RN) Status: Ongoing (Lashawn Keller RN) Knowledge Deficit State: Risk For (Lashawn Keller RN) Related To: Labor and Delivery Process; Treatment and Procedures; Impending Alterations in Family Dynamics (Lashawn Keller RN) Goal(s): Patient will Accurately Verbalize Understanding of Plan of Care and Treatment; Patient and Family will Accurately Verbalize Understanding of the Disease Process (Lashawn Keller RN) Interventions: Assess Motivation and Willingness of Patient/Family to Learn; Assess Preferred Learning Mode: One to One Instruction, Reading, Videos, Group Discussion or Demonstration; Assess Barriers to Learning: Pain, Emotional State, Language Barrier, Cognitive Impairment, Visual or Hearing Deficits; Assess Patient and Family Knowledge of Disease Process, Medications and Treatment; Discuss Therapy and/or Treatment Options, Describe Rationale Behind Management, Therapy and Treatment Recommendations; Instruct Patient and Family on Signs and Symptoms to Report; Instruct Patient and Family on Medication Effects and Side Effects; Provide Appropriate and Timely Education Using Multiple Techniques; Provide Patient and Family with Support Group Information and Resources; Give Clear and Thorough Explanations and Demonstrations (Lashawn Keller RN) Outcome: Patient and Family will Verbalize Understanding of Condition, Treatment and Signs and Symptoms to Report (Lashawn Keller RN) Status: Ongoing (Lashawn Keller RN) Outcome: Patient will Identify Perceived Learning Needs and Express Motivation to Learn (Lashawn Keller RN) Status: Ongoing (Lashawn Keller RN) Outcome: Patient will Verbalize Understanding of Desired Content, and/or Performs Desired Skill Prior to Discharge (Lashawn Keller RN) Status: Ongoing (Lashawn Keller RN) Infection State: Risk For (Lashawn Keller RN) Related To: Prolonged Labor or Induction; Invasive Procedures (Lashawn Keller RN) Goal(s): The Patient will be Free of Infection, Vital Signs Stable and Lab Work within Normal Parameters (Lashawn Keller RN) Interventions: Instruct and Reinforce Proper Handwashing, Hygiene, and Care Techniques to Patient and Family; Monitor Vital Signs; Monitor Patient for the Following Signs of Infection: Fever, Abdominal Tenderness, Unusual Discharge; Monitor Aminiotic Fluid, Urine and Lochia for Color and Odor; Observe Wounds, Incisions and Invasive Line Sites for Redness, Drainage and Edema; Assess IV Sites per Hospital Policy; Monitor Lab and Test Results and Notify Provider of Abnormal Findings; Assess Nutritional Status and Promote Good Nutrition (Lashawn Keller RN) Outcome: Patient will Remain Free of Infection (Lashawn Keller RN) Status: Ongoing (Lashawn Keller RN) Outcome: Infection will be Recognized Early to Allow for Prompt Treatment (Lashawn Keller RN) Status: Ongoing (Lashawn Keller RN) Outcome: Patient will have Vital Signs Within Expected Range (Lashawn Keller RN) Status: Ongoing (Lashawn Keller RN) Impaired Skin Integrity State: Risk For (Lashawn Keller RN) Related To: Vaginal Delivery; Invasive Procedures (Lashawn Keller RN) Goal(s): Patient will Maintain Optimal Skin Integrity, Free of Breakdown, Injury or Infection (Lashawn Keller RN) Interventions: Complete Screening for Pressure Ulcer Risk and Initiate Protocol per Hospital Policy; Monitor Site of Skin Impairment for Color Changes, Redness, Swelling, Warmth, Pain or Other Signs of Infection; Encourage and Assist with Position Changes; Monitor Patient's Mobility Status; Provide Adequate Nutrition and Fluids; Teach Patient Appropriate Hygienic Care; Teach Patient/Family Skin Care Management (Lashawn Keller RN) Outcome: Patient will not have Evidence of Injury Such as Skin Breakdown, Scrapes, Cuts, or Bruising (Lashawn Keller RN) Status: Ongoing (Lashawn Keller RN) Outcome: Patient will Report Any Altered Sensation or Pain at Site of Skin Impairment (Lashawn Keller RN) Status: Ongoing (Lashawn Keller RN) Outcome: Patients Incisions and Wounds will be without Signs or Symptoms of Infection (Lashawn Keller RN) Status: Ongoing (Lashawn Keller RN) Outcome: Patient will Demonstrate Understanding of Plan to Heal Skin and Prevent Reinjury and Verbalize Risk Factors (Lashawn Keller RN) Status: Ongoing (Lashawn Keller RN)
--- NOTE | 2016-07-29 06:01 | L&D Current Admission ---
Current Admit Datetime Report Generated by CPN: 07/29/2016 06:00 ADMISSION INFORMATION Current Admit Date/Time: 07/27/2016 11:14 (07/27/2016 11:14:Lashawn Keller RN) Reason for Admission: Induction of Labor (07/27/2016 11:14:Lashawn Keller RN) Chief Complaint: Other (Annotations: vaginal pressure ) (07/27/2016 11:20:Lashawn Keller RN) EGA per Dates: 39.6 (07/27/2016 11:14:QS system process) Method of Arrival: Ambulatory (07/27/2016 11:14:Lashawn Keller RN) Admitted From: Home (07/27/2016 11:14:Lashawn Keller RN) Reason for Induction: Polyhydramnios (07/27/2016 11:14:Lashawn Keller RN) Records Available: Yes (07/27/2016 11:14:Lashawn Keller RN) General Admission Information: Reviewed; Updated; Confirmed (07/27/2016 11:14:Lashawn Keller RN) General Admission Reviewed By: Andree Keller RN (07/27/2016 11:14:Lashawn Keller RN) BELONGINGS/ADVANCED DIRECTIVES Valuables/Personal Effects: Cell Phone (07/27/2016 11:14:Lashawn Keller RN) Other Belongings: See Belongings sheet (07/27/2016 11:14:Lashawn Keller RN) Disposition of Belongings: Kept with Patient (07/27/2016 11:14:Lashawn Keller RN) Advance Direct for Healthcare: No, and Wants No Information (07/27/2016 11:14:Lashawn Keller RN) Durable Power of Reinforcing Steel Machine Operator: No (07/27/2016 11:14:Lashawn Keller RN) Living Will: No (07/27/2016 11:14:Lashawn Keller RN) Organ Donor: No (07/27/2016 11:14:Lashawn Keller RN) Pt Rights Information Given: Yes (07/27/2016 11:14:Lashawn Keller RN) Pt Understands Pt Rights: Yes (07/27/2016 11:14:Lashawn Keller RN) LEARNING ASSESSMENT Knowledge Level: Understands L_D Process; Understands Care Activities; Had Pre-Hospital Education; Understands Diagnosis (07/27/2016 11:14:Lashawn Keller RN) Barriers to Learning: None (07/27/2016 11:14:Lashawn Keller RN) Learning Readiness: Motivated (07/27/2016 11:14:Lashawn Keller RN) Learns Best By: 1 to 1 Instruction (07/27/2016 11:14:Lashawn Keller RN) Learning Needs: Labor and Delivery Process; Pain Management; Symptoms to Report; Treatment Plan; Medication; Diagnosis; Nutrition; Equipment; Infant Care; Community Resources (07/27/2016 11:14:Lashawn Keller RN) DOMESTIC VIOLANCE SCREENING Dom Viol Threatened/Hurt: No (07/27/2016 11:14:Lashawn Keller RN) Hx of Abuse/Neglect past 2yrs: No (07/27/2016 11:14:Lashawn Keller RN) Feel Unsafe Going Home: No (07/27/2016 11:14:Lashawn Keller RN) Addt'l Observ Indicating Abuse: No (07/27/2016 11:14:Lashawn Keller RN) Reason Unable to Complete Screen: N/A, Screen Completed (07/27/2016 11:14:aLshawn Keller RN) Considered Personal Harm/Suicide: No (07/27/2016 11:14:Lashawn Keller RN) NUTRITIONAL/FUNCTIONAL SCREENING Problem with Appetite >5 Days: No (07/27/2016 11:14:Lashawn Keller RN) Chew/Swallow Difficulties: No (07/27/2016 11:14:Lashawn Keller RN) Inappropriate Wt Gain/Loss: No (07/27/2016 11:14:Lashawn Keller RN) Presence Skin Breakdown/Ulcer: No (07/27/2016 11:14:Lashawn Keller RN) Special Diet: No (07/27/2016 11:14:Lashawn Keller RN) Pt Requests Latin Professor Visit: No (07/27/2016 11:14:Lashawn Keller RN) Hx of Any of the Following?: N/A (07/27/2016 11:14:Lashawn Keller RN) New Diagnosis of: N/A (07/27/2016 11:14:Lashawn Keller RN) Requires Assist w/Ambulation: No (07/27/2016 11:14:Lashawn Keller RN) Uses Assist Device to Ambulate: No (07/27/2016 11:14:Lashawn Keller RN) Pt Requires Help w/ADL's: No (07/27/2016 11:14:Lashawn Keller RN)
--- NOTE | 2016-07-29 06:01 | L&D General Admission ---
General Admit Datetime Report Generated by CPN: 07/29/2016 06:00 INFORMATION Patient Age: 30 (01/15/2016 17:42:QS system process) EDC: 07/28/2016 00:00 (05/27/2016 04:46:Gillian Orosco RN) : 2 (05/27/2016 04:46:Gillian Orosco RN) Para: 1 (05/27/2016 08:21:Alda Kohli RN) Term: 0 (05/27/2016 04:46:Suzette Tobias RN) : 0 (05/27/2016 04:46:Suzette Tobias RN) Spontaneous Abortions: 0 (05/27/2016 04:46:Suzette Tobias RN) Induced Abortions: 0 (05/27/2016 04:46:Suzette Tobias RN) Livin (05/27/2016 04:46:Gillian Orosco RN) Cesareans: 0 (05/27/2016 04:46:Suzette Tobias RN) VBACs: 0 (05/27/2016 04:46:Suzette Tobias RN) Ectopic: 0 (05/27/2016 04:46:Suzette Tobias RN) Multiple Births: 0 (05/27/2016 04:46:Suzette Tobias RN) Baby, Number in Womb: 1 (05/27/2016 08:21:Alda Kohli RN) CARE Primary Promotions Producer: [facility] (05/27/2016 04:46:Suzette Tobias RN) Month of 1st Visit: October (05/27/2016 04:46:Suzette Tobias RN) Adequate Care: Yes (05/27/2016 04:46:Suzette Tobias RN) Prepregnancy Weight (lb): 190 (05/27/2016 04:46:Lashawn Keller RN) Prepregnancy Weight (kg): 86.4 (05/27/2016 04:46:QS system process) Height (in): 64 (07/27/2016 21:18:QS system process) ALLERGIES Medication Allergy: No (05/27/2016 04:46:Suzette Tobias RN) Medication Allergies: No Known Allergies (07/16/2016) (07/16/2016 12:34:QS system process) Latex Allergy: No Latex Allergies (05/27/2016 04:46:Suzette Tobias RN) Food Allergies: None (05/27/2016 04:46:Suzette Ring RN) Environmental Allergies: None (05/27/2016 04:46:Suzette Ring, RN) COMMUNICATION Primary Language: Iranian (05/27/2016 04:46:Suzette Tobias RN) Medical Tx Preferred Language: Iranian (05/27/2016 04:46:Suzette Ring RN) Communication Barrier(s): None (05/27/2016 04:46:Suzette Ring, RN) DEMOGRAPHICS Address: [address] [place] [id number] (05/27/2016 04:48:QS system process) Zipcode: [id number] (05/27/2016 04:48:QS system process) Home (01/15/2016 17:42:QS system process) N: [phone] (01/15/2016 17:42:QS system process) Next of Kin Name: KELECHI JENSEN (01/15/2016 17:42:QS system process) Next of Kin (01/15/2016 17:42:QS system process) Next of Kin Relationship: SPO (01/15/2016 17:42:QS system process) Date of : 1985 (01/15/2016 17:42:QS system process) Marital Status: (01/15/2016 17:42:QS system process) Sex: Female (01/15/2016 17:42:QS system process) Race: (01/15/2016 17:42:QS system process) Ethnicity: Non- or (01/15/2016 17:42:QS system process) Church: Rastafari (01/15/2016 17:42:QS system process) DRUG AND ALCOHOL USE Alcohol: No (05/27/2016 04:46:Suzette Tobias RN) Cigarettes: Never Smoker. [phone] (05/27/2016 04:46:Suzette Tobias RN) Marijuana: No (05/27/2016 04:46:Suzette Ring, RN) Cocaine: No (05/27/2016 04:46:Suzette Ring RN) Other Illicit Drugs: No (05/27/2016 04:46:Suzette Ring RN) VACCINE HISTORY Influenza Vaccine: No (05/27/2016 04:46:Suzette Tobias RN) Pneumococcal Vaccine: No (05/27/2016 04:46:Suzette Tobias RN) Tetanus Vaccine: No (05/27/2016 04:46:Suzette Tobias RN) Tdap Vaccine: No (05/27/2016 04:46:Suzette Tobias RN) Hepatitis B Vaccine: Yes (05/27/2016 04:46:Suzette Tobias RN) Switch Crew Supervisor: [facility] (05/27/2016 04:46:Suzette Tobias RN) Feeding Preference: Both (05/27/2016 04:46:Suzette Tobias RN) Benefit of Breast Feed Discussed: Yes (05/27/2016 04:46:Suzette Tobias RN) Circumcision: N/A (05/27/2016 04:46:Suzette Tobias RN) Tubal Ligation: No (05/27/2016 04:46:Suzette Tobias RN) Tubal Authorization Signed: N/A (05/27/2016 04:46:Suzette Tobias RN) Consent: N/A (05/27/2016 04:46:Suzette Tobias RN) Consent Signed: N/A (05/27/2016 04:46:Suzette Tobias RN) Pain Management Plans: Epidural (05/27/2016 04:46:Suzette Tobias RN) Plans for Labor and Delivery: None (05/27/2016 04:46:Suzette Tobias RN) Support Person: Kelechi Jensen (05/27/2016 04:46:Suzette Tobias RN) Support Person Relationship: (05/27/2016 04:46:Suzette Tobias RN) Cultural/Spritual Practice: No (05/27/2016 04:46:Suzette Tobias RN) Spir/Cult Dietary Needs: No (05/27/2016 04:46:Suzette Tobias RN) LIVING SITUATION/DISCHARGE PLAN Living Arrangements: House (05/27/2016 04:46:Suzette Tobias RN) Adequate Access to:: Electric; Heat; Refrigeration; Plumbing/Running water; Phone; Transportation (05/27/2016 04:46:Suzette Tobias RN) WIC Program: No (05/27/2016 04:46:Suzette Tobias RN) Discharge Laundry Aid Person: Kelechi (05/27/2016 04:46:Suzette Tobias RN) Person to Help after Discharge: Kelechi (05/27/2016 04:46:Suzette Tobias RN) Currently Using Commun Resources: No (05/27/2016 04:46:Suzette Tobias RN) Outside Agency/Seed Expert: N/A (05/27/2016 04:46:Suzette Tobias RN) Car Seat for Discharge: Yes (05/27/2016 04:46:Lashawn Keller RN) Adoption Requested: No (05/27/2016 04:46:Suzette Tobias RN) Pt Contact w/infant Post : N/A (05/27/2016 04:46:Suzette Tobias RN) LABS Blood Type: A Positive (05/27/2016 04:46:Gillian Orosco RN) Antibody Screen: neg (05/27/2016 04:46:Gillian Orosco RN) Rho(G) this : Not Applicable (05/27/2016 04:46:Gillian Orosco RN) Hemoglobin: 10.9 L (07/28/2016 06:42:QS system process) Hematocrit: 32.0 L (07/28/2016 06:42:QS system process) MCV: 84 (07/28/2016 06:42:QS system process) Group Beta Strep: Negative (05/27/2016 04:46:Avis Granados RN) Gonorrhea: Negative (05/27/2016 04:46:Avis Granados RN) Chlamydia: Negative (05/27/2016 04:46:Avis Granados RN) RPR/VDRL: Nonreactive (05/27/2016 04:46:Gillian Orosco RN) HIV Exposure Test: Negative (05/27/2016 04:46:Gillian Orosco RN) Hepatitis B: Negative (05/27/2016 04:46:Gillian Orosco RN) Rubella: Immune (05/27/2016 04:46:Gillian Orosco RN) OB/PREVIOUS HISTORY Previous Procedures: Ultrasound (05/27/2016 04:46:Suzette Tobias RN) Current Procedures: Ultrasound (05/27/2016 04:46:Suzette Tobias RN) History of Previous : No (05/27/2016 04:46:Suzette Tobias RN) History of Gestational Diabetes: No (05/27/2016 04:46:Suzette Tobias RN) History of PIH: No (05/27/2016 04:46:Suzette Tobias RN) History of Incompetent Cervix: No (05/27/2016 04:46:Suzette Tobias RN) History of Placenta Previa/Abrup: No (05/27/2016 04:46:Suzette Tobias RN) History of Macrosomia: No (05/27/2016 04:46:Suzette Tobias RN) History of IUGR: No (05/27/2016 04:46:Suzette Tobias RN) History of Hemorrhage: No (05/27/2016 04:46:Suzette Tobias RN) History of Loss/Stillborn: No (05/27/2016 04:46:Suzette Tobias RN) History of : No (05/27/2016 04:46:Suzette Tobias RN) History of D (Rh) Sensitization: No (05/27/2016 04:46:Suzette Tobias RN) History Recurrent Loss/Stillborn: No (05/27/2016 04:46:Suzette Tobias RN) History Depression/PP Depression: No (05/27/2016 04:46:Suzette Tobias RN) History of Uterine Anomaly/ZOLTAN: No (05/27/2016 04:46:Suzette Tobias RN) History of Infertility: No (05/27/2016 04:46:Suzette Tobias RN) History of ART Treatment: No (05/27/2016 04:46:Suzette Tobias RN) History of ZOLTAN: No (05/27/2016 04:46:Suzette Tobias RN) Comments Obstetrical History: G1: 2012- 41 weeks, girl 8#4oz (no complications) G2: 2016- current (05/27/2016 04:46:Suzette Tobias RN) MEDICAL HISTORY Med Hx Diabetes: No (05/27/2016 04:46:Suzette Tobias RN) Med Hx Hypertension: No (05/27/2016 04:46:Suzette Tobias RN) Med Hx Heart Disease: No (05/27/2016 04:46:Suzette Tobias RN) Med Hx Autoimmune Disorder: No (05/27/2016 04:46:Suzette Tobias RN) Med Hx Kidney Disease/UTI: No (05/27/2016 04:46:Suzette Tobias RN) Med Hx Neurologic/Epilepsy: No (05/27/2016 04:46:Suzette Tobias RN) Med Hx Psychiatric Disorders: No (05/27/2016 04:46:Suzette Tobias RN) Med Hx Hepatitis/Liver Disease: No (05/27/2016 04:46:Suzette Tobias RN) Med Hx Varicosities/Phlebitis: No (05/27/2016 04:46:Suzette Tobias RN) Med Hx Thyroid Dysfunction: Yes (05/27/2016 04:46:Gillian Orosco RN) Med Hx Trauma/Violence: No (05/27/2016 04:46:Suzette Tobias RN) Med Hx Blood Transfusion: No (05/27/2016 04:46:Suzette Tobias RN) Med Hx Pulmonary (Asthma,TB): No (05/27/2016 04:46:Suzette Tobias RN) Med Hx Breast: No (05/27/2016 04:46:Suzette Tobias RN) Med Hx KNOCK UP ASSEMBLER Surgery: No (05/27/2016 04:46:Suzette Tobias RN) Med Hx Hospitalization/Surgery: Yes (05/27/2016 04:46:Suzette Tobias RN) Med Hx Anesthetic Complications: No (05/27/2016 04:46:Suzette Tobias RN) Med Hx Abnormal Pap Smear: No (05/27/2016 04:46:Suzette Tobias RN) Other Medical Diseases: No (05/27/2016 04:46:Suzette Tobias RN) Med Hx Significant Family Hx: No (05/27/2016 04:46:Suzette Tobias RN) Details of Med/Surg Hx: Hypothyroid- synthroid; of first child (05/27/2016 04:46:Suzette Tobias RN) INFECTIOUS HISTORY Inf Hx Gonorrhea: No (05/27/2016 04:46:Suzette Tobias RN) Inf Hx Chlamydia: No (05/27/2016 04:46:Suzette Tobias RN) Inf Hx Syphilis: No (05/27/2016 04:46:Suzette Tobias RN) Inf Hx HIV/AIDS: No (05/27/2016 04:46:Suzette Tobias RN) Inf Hx Human Papilloma Virus: No (05/27/2016 04:46:Suzette Tobias RN) Inf Hx Pt/Partner Genital Herpes: No (05/27/2016 04:46:Suzette Tobias RN) Inf Hx Tuberculosis/Exposure: No (05/27/2016 04:46:Suzette Tobias RN) Inf Hx Hepatitis B,C: No (05/27/2016 04:46:Suzette Tobias RN) Inf Hx Rash or Viral Illness: No (05/27/2016 04:46:Suzette Tobias RN) GENETIC HISTORY Gen Hx Age >=35 at NARCISO: No (05/27/2016 04:46:Suzette Tobias RN) Gen Hx Thalassemia: No (05/27/2016 04:46:Suzette Tobias RN) Gen Hx Congenital Heart Defect: No (05/27/2016 04:46:Suzette Tobias RN) Gen Hx Neural Tube Defect: No (05/27/2016 04:46:Suzette Tobias RN) Gen Hx Down's Syndrome: No (05/27/2016 04:46:Suzette Tobias RN) Gen Hx Kojo-Sachs: No (05/27/2016 04:46:Suzette Tobias RN) Gen Hx Hoda: No (05/27/2016 04:46:Suzette Tobias RN) Gen Hx Familial Dysautonomia: No (05/27/2016 04:46:Suzette Tobias RN) Gen Hx Sickle Cell Disease/Trait: No (05/27/2016 04:46:Suzette Tobias RN) Gen Hx Hemophilia/Blood Disorder: No (05/27/2016 04:46:Suzette Tobias RN) Gen Hx Muscular Dystrophy: No (05/27/2016 04:46:Suzette Tobias RN) Gen Hx Cystic Fibrosis: No (05/27/2016 04:46:Suzette Tobias RN) Gen Hx Huntingtons Chorea: No (05/27/2016 04:46:Suzette Tobias RN) Gen Hx Mental Retardation/Autism: Yes (05/27/2016 04:46:Suzette Tobias RN) Gen Hx Tested for Fragile X: No (05/27/2016 04:46:Suzette Tobias RN) Gen Hx Other Inher/Chromosomal: No (05/27/2016 04:46:Suzette Tobias RN) Gen Hx Maternal Metabolic DO: No (05/27/2016 04:46:Suzette Tobias RN) Gen Hx Pt Father or FOB Defect: No (05/27/2016 04:46:Suzette Tobias RN) Gen Hx Other Genetic History: No (05/27/2016 04:46:Suzette Tobias RN) Gen Hx Drugs/Meds since LMP: Yes (05/27/2016 04:46:Suzette Tobias RN) Gen Hx Medications: Levothyroxine; PNV; theraflu; tylenol cold (05/27/2016 04:46:Suzette Tobias RN) Details of Genetic History: cousin's son has autism (05/27/2016 04:46:Suzette Tobias RN)
[2016-07-29] MEDS: IBUPROFEN 800 MG TABLET PO SCH (06:58)
[2016-07-29 08:36] VITALS: BP 119/66
--- NOTE | 2016-07-29 08:37 | PDOC DISCHARGE SUMMARY ---
Final Diagnosis Discharge Date: 07/29/16 - Final Diagnosis (1) Vaginal delivery Is this a current diagnosis for this admission?: Yes Discharge Data - Discharge Medication Home Medications: Levothyroxine Sodium [Synthroid 0.075 mg Tablet] 150 mcg PO DAILY 06/20/12 Pnv W-O Ca No5/Fe Fumarate/FA [-U Multiple Vitamin Capsule] 1 each PO DAILY 06/20/12 Docusate Sodium [Colace 100 mg Capsule] 100 mg PO BID #60 capsule 07/29/16 Ferrous Sulfate [Feosol 325 mg Tablet] 325 mg PO BID #60 tablet 07/29/16 Ibuprofen [Motrin 800 mg Tablet] 800 mg PO Q8 #60 tablet 07/29/16 Gestational Age: 39.6 Reason(s) for Admission: Onset of Labor, Other Admission Note: prordromal labor, poly. Procedures: NST Intrapartum Procedure(s): Spontaneous Vaginal Delivery Complication(s): Laceration-Perineal - [place] Data Baby 1 Female at 1 minute: 9 at 5 minutes: 10 Weight: 3400 kg Home with Mother: Yes Complications: No - Diagnosis Test Laboratory: Temp Pulse Resp BP Pulse Ox 97.8 F 94 17 123/76 99 07/28/16 08:52 07/28/16 08:52 07/28/16 08:52 07/28/16 08:52 07/28/16 08:52 07/27/16 07/27/16 07/28/16 11:01 11:38 06:42 RBC 4.06 3.82 Hgb 11.6 L 10.9 L Hct 33.7 L 32.0 L Urine Opiates Screen NEGATIVE - Discharge information/Instructions Discharge Activity: Activity As Tolerated, Pelvic Rest, No tub bath Discharge Diet: Regular Disposition: HOME, SELF-CARE Follow [facility] with: [facility] in: 4, Weeks
[2016-07-29] MEDS: DOCUSATE SODIUM 100 MG CAPSULE PO SCH (09:11)
[2016-07-29] MEDS: SENNOSIDES/DOCUSATE 8.6-50 MG 1 EACH TABLET PO SCH (09:11)
[2016-07-29] MEDS: PRENATAL VITAMIN W-O CA NO5/FE FUMARATE/FA CAPSULE PO SCH (09:11)
[2016-07-29] MEDS: FERROUS SULFATE 325 MG TABLET PO SCH (09:11)
== END 2016-07-29 11:15 | disposition home or self-care (01) | DRG 775 ==
LOC: LC 10:52 → LR 11:13 → 2S 21:18
PROVIDERS: ADMIT Obstetrics & Gynecology; ATTEND Obstetrics & Gynecology
PROC: 10E0XZZ Delivery of Products of Conception, External Approach (ICD-10-PCS; principal; 2016-07-27)
PROC: 4A1H7CZ Monitoring of Products of Conception, Cardiac Rate, Via Natural or Artificial Opening (ICD-10-PCS; 2016-07-27)
PROC: 10H073Z Insertion of Monitoring Electrode into Products of Conception, Via Natural or Artificial Opening (ICD-10-PCS; 2016-07-27)
DX: O40.3XX0 Polyhydramnios, third trimester, not applicable or unspecified (principal); O99.284 Endocrine, nutritional and metabolic diseases complicating childbirth; O99.02 Anemia complicating childbirth; D64.9 Anemia, unspecified; E03.9 Hypothyroidism, unspecified; Z79.899 Other long term (current) drug therapy; Z3A.39 39 weeks gestation of pregnancy; Z37.0 Single live birth
CPT/HCPCS: 36415; 80307; 81005; 85025; 85027; 86592; 86850; 86900; 86901; J2590; J3490